=== PATIENT | female | born 1945 ===

== ENCOUNTER 2017-04-28 16:55 | Inpatient (IN) | payer MEDICARE ==
[2017-04-28] MEDS ORDERED: Albuterol-Ipratrop 3 mg / 0.5 (3 ml) UD INH STA ×2 (17:23→18:47)
--- NOTE | 2017-04-28 17:44 | ED PDOC ---
HPI: SOB/CHF/COPD Time Seen by Provider: 04/28/17 17:04 Chief Complaint (Nursing): Cough, Cold, Congestion Additional Complaint(s): Patient is a 71 y/o F with hx of asthma, presenting with "worsening asthma." Patient reports that a non-productive cough and the cold weather and dust have triggered her asthma. Reports using nebulizer at home without relief. Reports subjective fevers. Denies chest pain. Denies current PMD. Past Medical History Vital Signs: Last Vital Signs Temp 100.8 F H 04/28/17 17:01 Pulse 93 H 04/28/17 17:01 Resp 16 04/28/17 17:01 BP 124/69 04/28/17 17:01 Pulse Ox 96 04/28/17 18:51 - Medical History PMH: Arthritis, Asthma, HTN, Hyperlipidemia Denies: Chronic Kidney Disease - Family History Family History: States: No Known Family Hx - Immunization History Hx Tetanus Toxoid Vaccination: No (Not up to date) - Home Medications Home Medications: Ambulatory Orders Medication Instructions Recorded Tramadol HCl [Ultram] 50 mg PO BID PRN #30 tablet 12/15/15 Albuterol Sulfate [Proair Hfa] 2 puff INH Q6 PRN 04/28/17 Montelukast [Singulair] 10 mg PO HS 04/28/17 Valsartan/Hydrochlorothiazide 1 tab PO DAILY 04/28/17 [Diovan Hct 320-25 mg Tablet] - Allergies Allergies/Adverse Reactions: Allergies Allergy/AdvReac Type Severity Reaction Status Date / Time No Known Allergies Allergy Verified 04/28/17 17:00 Curb-65 Severity Score - CURB-65 Severity Score Confusion: No Bun >19mg/dl (>7mmol/L): No Respiratory Rate greater than/equal to 30: No Systolic BP <90 or Diastolic BP less than/equal 60mmHg: No Age >64: Yes Curb-65 Score: 1 Percentage 30-day mortality: 2.7% Review of Systems ROS Statement: Except As Marked, All Systems Reviewed And Found Negative Constitutional: Positive for: Fever Cardiovascular: Negative for: Chest Pain, Palpitations, Paroxysmal Noc. Dyspnea , Edema, Light Headedness Respiratory: Positive for: Cough, Shortness of Breath, SOB with Exertion, Wheezing Gastrointestinal: Negative for: Nausea, Vomiting, Abdominal Pain, Diarrhea, Constipation Genitourinary Female: Negative for: Dysuria Musculoskeletal: Negative for: Neck Pain Skin: Negative for: Rash Neurological: Negative for: Weakness, Numbness, Headache Physical Exam - Reviewed Nursing Documentation Reviewed: Yes Vital Signs Reviewed: Yes - Physical Exam Appears: Positive for: Well, Non-toxic Head Exam: Positive for: ATRAUMATIC, NORMAL INSPECTION, NORMOCEPHALIC Eye Exam: Positive for: Normal appearance Neck: Positive for: Supple Cardiovascular/Chest: Positive for: Regular Rate, Rhythm. Negative for: Edema Respiratory: Positive for: Wheezing Gastrointestinal/Abdominal: Positive for: Soft. Negative for: Tenderness Back: Positive for: Normal Inspection. Negative for: L CVA Tenderness, R CVA Tenderness Extremity: Positive for: Normal ROM Neurologic/Psych: Positive for: Alert - Laboratory Results Result Diagrams: 04/28/17 18:04 04/28/17 18:04 - ECG O2 Sat by Pulse Oximetry: 96 Nebulizer Treatments/Peak Flow - Duonebs Number of Bronchodilator Doses given?: 3 Medical Decision Making Medical Decision Making: Patient is febrile and wheezing. EKG shows NSR at 89bpm with normal intervals and no ST changes --xray --influenza --labs --duonebs, solumedrol 6:42PM Cxray grossly negative for large infiltrate. However, patient is febrile with elevated wbc and co-morbid condition. Will give ceftriaxone and azithromycin. On reevaluation, PF is 225. Patient is persistently wheezing. Spoke to Dr. Rankin, medicine optimization analyst and will admit to medicine for asthma and developing pneumonia. Influenza negative. Disposition - Clinical Impression Clinical Impression: Asthma exacerbation - Disposition Disposition Time: 18:56 Condition: FAIR Forms: [facility] (Hungarian) - Pt Status Changed To: Hospital Disposition Of: Observation
[2017-04-28] MEDS ORDERED: Albuterol-Ipratrop 3 mg / 0.5 (3 ml) UD INH ONE (17:50)
[2017-04-28 18:21] LABS: BASO # 0.1 K/uL (0.0-0.2); BASO % 0.5 % (0.0-2.0); EOS # 0.2 K/uL (0.0-0.7); EOS % 1.5 % (0.0-4.0); HEMATOCRIT 42.4 % (34.0-47.0); LYMPH # 2.8 K/uL (1.0-4.3); LYMPH % 21.4 % (20.0-40.0); MEAN CELL VOLUME 85.1 fl (81.0-99.0); MEAN CORPUSCULAR HEMOGLOBIN 27.6 pg (27.0-31.0); MEAN CORPUSCULAR HGB CONC 32.5 g/dL (33.0-37.0); MEAN PLATELET VOLUME 7.5 fl (7.2-11.7); MONO # 1.2 K/uL (0.0-0.8); MONO % 8.8 % (0.0-10.0); NEUT # 8.9 K/uL (1.8-7.0); NEUT % 67.8 % (50.0-75.0); NRBC % 0.1 % (0.0-0.0); RED CELL DISTRIBUTION WIDTH 14.8 % (11.5-14.5); WHITE BLOOD COUNT 13.1 K/uL (4.8-10.8)
[2017-04-28 18:34] LABS: ALB/GLOB RATIO 1.3 (1.0-2.1); ALKALINE PHOSPHATASE 121 U/L (38-126); ALT/SGPT 31 U/L (9-52); AST/SGOT 21 U/L (14-36); BLOOD UREA NITROGEN 17 mg/dl (7-17); CALCIUM 9.5 mg/dL (8.4-10.2); CARBON DIOXIDE 25 mmol/L (22-30); CHLORIDE 101 mmol/L (98-107); GFR AFRICAN-AMERICAN > 60; GLUCOSE,RANDOM 101 mg/dL (65-105); POTASSIUM 3.4 MMOL/L (3.6-5.0); SODIUM 138 mmol/l (132-148); TOTAL PROTEIN 7.9 G/DL (6.3-8.2)
[2017-04-28] MEDS ORDERED: cefTRIAXone IV 1 gm in Dextros 50 ML IVPB STA (18:43)
[2017-04-28] MEDS ORDERED: Azithromycin 500 MG in Sodium Chloride 0.9% 250 ML IVPB STA (18:43)
[2017-04-28] MEDS ORDERED: cefTRIAXone IV 1 gm in Dextros 50 ML IVPB ONE (19:32)
[2017-04-28] MEDS ORDERED: Albuterol-Ipratrop 3 mg / 0.5 (3 ml) UD ONE (19:33)
[2017-04-28] MEDS ORDERED: Azithromycin 500 MG IV IVPB ONE (19:33)
[2017-04-28] MEDS ORDERED: Sodium Chloride 3% for Inhalation 4 ML VIAL.NEB IH PRN (21:43)
[2017-04-28] MEDS ORDERED: Pneumococcal 23-Valent Vaccine IM ONE (21:51)
[2017-04-28] MEDS ORDERED: Influenza Vaccine 18yr & older 0.5 ML/45 MCG SYR IM ONE (21:51)
[2017-04-29] MEDS ORDERED: methylPREDNISolone 80 MG in Sodium Chloride 0.9% 50 ML IV SCH (01:00)
[2017-04-29] MEDS: Albuterol-Ipratrop 3 mg / 0.5 (3 ml) UD INH SCH ×4 (01:08→19:26)
[2017-04-29 07:31] LABS: HEMATOCRIT 40.2 % (34.0-47.0); MEAN CELL VOLUME 86.6 fl (81.0-99.0); MEAN CORPUSCULAR HEMOGLOBIN 28.3 pg (27.0-31.0); MEAN CORPUSCULAR HGB CONC 32.7 g/dL (33.0-37.0); RED CELL DISTRIBUTION WIDTH 14.4 % (11.5-14.5); WHITE BLOOD COUNT 10.5 K/uL (4.8-10.8)
[2017-04-29 07:45] LABS: BLOOD UREA NITROGEN 25 mg/dl (7-17); CALCIUM 9.1 mg/dL (8.4-10.2); CARBON DIOXIDE 25 mmol/L (22-30); CHLORIDE 102 mmol/L (98-107); CHOLESTEROL 278 mg/dL (0-199); GFR AFRICAN-AMERICAN > 60; GLUCOSE,RANDOM 204 mg/dL (65-105); POTASSIUM 3.7 MMOL/L (3.6-5.0); SODIUM 143 mmol/l (132-148)
--- NOTE | 2017-04-29 09:16 | RAD ---
HISTORY: wheezing, cough COMPARISON: Chest radiographs 05/28/2015. TECHNIQUE: Chest PA and lateral FINDINGS: LUNGS: No active pulmonary disease. PLEURA: No significant pleural effusion identified. No pneumothorax apparent. CARDIOVASCULAR: There is interval cardiomegaly without pulmonary vascular derangement appreciated OSSEOUS STRUCTURES: No significant abnormalities. VISUALIZED UPPER ABDOMEN: Normal. OTHER FINDINGS: None. IMPRESSION: Interval cardiomegaly. No pulmonary vascular derangement or infiltrate appreciated bilaterally.
[2017-04-29] MEDS: Enoxaparin 40 mg Syringe SC SCH (09:28)
[2017-04-29] MEDS: Azithromycin 500 MG in Sodium Chloride 0.9% 250 ML IVPB SCH (09:30)
[2017-04-29 09:47] LABS: ABG ALLEN TEST YES; ARTERIAL BLOOD GAS HCO3 22.7 mmol/L (21-28); ARTERIAL BLOOD GAS O2 CAPACITY 18.2 mL/dL (16-24); ARTERIAL BLOOD GAS O2 CONTENT 17.8 ML/dL (15-23); ARTERIAL BLOOD GAS PH 7.42 (7.35-7.45); ARTERIAL BLOOD GAS PO2 73 mm/Hg (80-100); ARTERIAL BLOOD HGB O2 SAT 94.6 % (95.0-98.0); METHEMOGLOBIN 1.4 % (0.0-3.0)
[2017-04-29] MEDS ORDERED: guaiFENesin DM 200 mg-20 mg/10 ml UD PO PRN (10:37)
[2017-04-29] MEDS: cefTRIAXone IV 1 gm in Dextros 50 ML IVPB SCH (13:19)
[2017-04-29] MEDS: Acetylcysteine 20% Inhal Soln (4ml) INH SCH (19:26)
--- NOTE | 2017-04-29 22:08 | HP ---
HISTORY OF PRESENT ILLNESS: Ms. Epi Christie is a 71-year-old female who is admitted via the Emergency Room because of shortness of breath, exercise intolerance, cough productive of greenish sputum for several days prior to presentation associated with chest discomfort on coughing. She was seen in the Emergency Room and admitted for acute asthma. PAST MEDICAL HISTORY: Arthritis, asthma, hypertension, hyperlipidemia. FAMILY HISTORY: Non-revealing. SOCIAL HISTORY: She does not smoke or drink. REVIEW OF SYSTEMS: Essentially unremarkable except for intermittent asthma attacks. PHYSICAL EXAMINATION: GENERAL: The patient is alert, oriented, appears to be feeling some distress due to cough and pleuritic chest pain with shortness of breath. VITAL SIGNS: Blood pressure 129/73, pulse of 76, respiratory rate is 18, she is afebrile, O2 sat 95% on room air. SKIN: Shows fair turgor. HEENT: Pupils equal and reactive to light and accommodation. Mouth shows fair hygiene with mucous engorgement of pharynx. NECK: JVP flat. BREASTS: Normal. LUNGS: Shows poor aeration bilaterally with audible wheezing and rales. HEART: S1, S2. ABDOMEN: Soft, nontender. No organomegaly. EXTREMITIES: Shows no edema or cyanosis. CENTRAL NERVOUS SYSTEM: Grossly intact. LABORATORY DATA: Chest x-ray shows no acute cardiopulmonary pathology except for mild cardiomegaly. The ABGs done on room air shows a pH of 7.42, pCO2 of 32, pO2 of 73, O2 sat 97.9. Sodium 143, potassium 3.7, BUN of 25, creatinine 0.8, serum glucose 204, cholesterol 278, LDL 183. WBC 13.1 down to 10.5, hemoglobin 13.1, platelet count 223,000. IMPRESSION: Acute exacerbation of asthma probably secondary to upper respiratory tract infection, hypertension fairly controlled, and hyperlipidemia. PLAN: Intravenous steroids, aerosolized bronchodilators, antitussive, analgesics for pain. We will give bronchodilators to improve respiratory status. Oxygen therapy already given. IV antibiotics for coverage of empiric upper respiratory tract infection. We will continue therapy as ordered. José Miguel Rankin MD
[2017-04-30] MEDS: Albuterol-Ipratrop 3 mg / 0.5 (3 ml) UD INH SCH ×4 (01:36→20:14)
[2017-04-30] MEDS: Acetylcysteine 20% Inhal Soln (4ml) INH SCH ×2 (07:50→20:14)
[2017-04-30] MEDS: Enoxaparin 40 mg Syringe SC SCH (08:36)
[2017-04-30] MEDS: cefTRIAXone IV 1 gm in Dextros 50 ML IVPB SCH (08:36)
[2017-04-30] MEDS: Azithromycin 500 MG in Sodium Chloride 0.9% 250 ML IVPB SCH (08:37)
--- NOTE | 2017-04-30 08:48 | CP.PCM.PN ---
Subjective - Date & Time of Evaluation Date of Evaluation: 04/30/17 Time of Evaluation: 08:48 - Subjective Subjective: LESS SOB STILL COUGHING UP GREEN SPUTUM Objective - Vital Signs/Intake and Output Vital Signs (last 24 hours): Temp Pulse Resp BP Pulse Ox 97.7 F 75 18 136/76 98 04/30/17 08:07 04/30/17 08:07 04/30/17 08:07 04/30/17 08:07 04/30/17 08:07 - Medications Medications: Current Medications Acetaminophen (Tylenol 325mg Tab) 650 mg PO Q4 PRN PRN Reason: Fever 101 F or over Acetaminophen (Tylenol 325mg Tab) 650 mg PO Q4 PRN PRN Reason: Pain, Mild (1-3) Last Admin: 04/29/17 15:41 Dose: 650 mg Acetylcysteine (Acetylcysteine 20%) 2 ml INH RBID [facility] Last Admin: 04/30/17 07:50 Dose: 2 ml Albuterol/Ipratropium (Duoneb 3 Mg/0.5 Mg (3 Ml) Ud) 3 ml INH RQ6 [facility] Last Admin: 04/30/17 07:50 Dose: 3 ml Enoxaparin Sodium (Lovenox) 40 mg SC DAILY [facility] PRN Reason: Protocol Last Admin: 04/30/17 08:36 Dose: 40 mg Guaifenesin/Dextromethorphan (Robitussin Dm) 10 ml PO Q4 PRN PRN Reason: Cough Hydrochlorothiazide (Hydrodiuril) 25 mg PO DAILY [facility] Last Admin: 04/30/17 08:36 Dose: 25 mg Azithromycin 500 mg/ Sodium (Chloride) 250 mls @ 250 mls/hr IVPB DAILY [facility] PRN Reason: Protocol Last Admin: 04/30/17 08:37 Dose: 250 mls/hr Ceftriaxone Sodium (Rocephin Iv 1 Gm Duplex) 50 mls @ 50 mls/hr IVPB DAILY [facility] PRN Reason: Protocol Last Admin: 04/30/17 08:36 Dose: 50 mls/hr Methylprednisolone (Solu-Medrol) 80 mg IV Q8 [facility] Last Admin: 04/30/17 08:38 Dose: 80 mg Montelukast Sodium (Singulair) 10 mg PO HS [facility] Last Admin: 04/29/17 21:32 Dose: 10 mg Tramadol HCl (Ultram) 50 mg PO BID PRN PRN Reason: Pain, moderate (4-7) Last Admin: 04/29/17 21:32 Dose: 50 mg Valsartan (Diovan) 320 mg PO DAILY [facility] Last Admin: 04/30/17 08:35 Dose: 320 mg - Labs Labs: 04/29/17 06:10 04/29/17 06:10 - Constitutional Appears: No Acute Distress - Head Exam Head Exam: ATRAUMATIC, NORMAL INSPECTION, NORMOCEPHALIC - Eye Exam Eye Exam: EOMI, Normal appearance, PERRL Pupil Exam: NORMAL ACCOMODATION, PERRL - ENT Exam ENT Exam: Mucous Membranes Moist, Normal Exam - Neck Exam Neck Exam: Full ROM, Normal Inspection. absent: Lymphadenopathy - Respiratory Exam Respiratory Exam: Prolonged Expiratory Phase, Wheezes, NORMAL BREATHING PATTERN - Cardiovascular Exam Cardiovascular Exam: REGULAR RHYTHM, +S1, +S2. absent: Murmur - GI/Abdominal Exam GI & Abdominal Exam: Soft, Normal Bowel Sounds. absent: Tenderness - Rectal Exam Rectal Exam: NORMAL INSPECTION - Extremities Exam Extremities Exam: Full ROM, Normal Capillary Refill, Normal Inspection. absent : Joint Swelling, Pedal Edema - Back Exam Back Exam: NORMAL INSPECTION - Neurological Exam Neurological Exam: Alert, Awake, CN II-XII Intact, Normal Gait, Oriented x3 - Psychiatric Exam Psychiatric exam: Normal Affect, Normal Mood - Skin Skin Exam: Dry, Intact, Normal Color, Warm Assessment and Plan - Assessment and Plan (Free Text) Assessment: ACUTE PERSISTENT ASTHMA EXACERBATION URI Plan: TAPER STEROIDS TRANSFER TO REGULAR FLOOR
[2017-04-30] MEDS: MethylPREDNISolone 40 mg Vial IV SCH ×2 (09:00→22:58)
--- NOTE | 2017-04-30 12:33 | CARD ---
APPROVED REPORT EKG Measurement Heart [id number] <Conclusion> Normal sinus rhythm Normal ECG
[2017-05-01] MEDS: Albuterol-Ipratrop 3 mg / 0.5 (3 ml) UD INH SCH ×3 (01:00→13:42)
[2017-05-01] MEDS: Acetylcysteine 20% Inhal Soln (4ml) INH SCH (07:16)
[2017-05-01 07:32] VITALS: BP 169/87; PULSE 75; RESP 18; TEMP 97.8; O2SAT 93
[2017-05-01] MEDS: cefTRIAXone IV 1 gm in Dextros 50 ML IVPB SCH (08:29)
[2017-05-01] MEDS: Enoxaparin 40 mg Syringe SC SCH (08:29)
[2017-05-01] MEDS: MethylPREDNISolone 40 mg Vial IV SCH (08:30)
[2017-05-01] MEDS: Azithromycin 500 MG in Sodium Chloride 0.9% 250 ML IVPB SCH (08:31)
--- NOTE | 2017-05-01 09:56 | CP.PCM.DIS ---
Provider - Provider Date of Admission: 04/29/17 21:28 Attending physician: José Miguel Rankin MD Time Spent in preparation of Discharge (in minutes): 35 Diagnosis - Discharge Diagnosis (1) Asthma exacerbation Status: Acute (2) Asthma exacerbation attacks Status: Acute (3) Bronchitis Status: Acute (4) Hypertension Status: Acute (5) Hyperlipidemia Status: Acute Hospital Course - Lab Results Lab Results: Micro Results 04/28/17 18:00 Blood Blood Culture - Preliminary NO GROWTH AFTER 48 HOURS 04/30/17 08:13 Sputum Gram Stain - Final Most Recent Lab Values WBC 10.5 K/uL (4.8-10.8) 04/29/17 06:10 RBC 4.65 Mil/uL (3.80-5.20) 04/29/17 06:10 Hgb 13.1 g/dL (12.0-16.0) 04/29/17 06:10 Hct 40.2 % (34.0-47.0) 04/29/17 06:10 MCV 86.6 fl (81.0-99.0) 04/29/17 06:10 MCH 28.3 pg (27.0-31.0) 04/29/17 06:10 MCHC 32.7 g/dL (33.0-37.0) L 04/29/17 06:10 RDW 14.4 % (11.5-14.5) 04/29/17 06:10 Plt Count 223 K/uL (130-400) 04/29/17 06:10 MPV 7.5 fl (7.2-11.7) 04/28/17 18:04 Neut % (Auto) 67.8 % (50.0-75.0) 04/28/17 18:04 Lymph % (Auto) 21.4 % (20.0-40.0) 04/28/17 18:04 [place] % (Auto) 8.8 % (0.0-10.0) 04/28/17 18:04 Eos % (Auto) 1.5 % (0.0-4.0) 04/28/17 18:04 Baso % (Auto) 0.5 % (0.0-2.0) 04/28/17 18:04 Neut # 8.9 K/uL (1.8-7.0) H 04/28/17 18:04 Lymph # 2.8 K/uL (1.0-4.3) 04/28/17 18:04 [place] # 1.2 K/uL (0.0-0.8) H 04/28/17 18:04 Eos # 0.2 K/uL (0.0-0.7) 04/28/17 18:04 Baso # 0.1 K/uL (0.0-0.2) 04/28/17 18:04 pCO2 32 mm/Hg (35-45) L 04/29/17 08:36 pO2 73 mm/Hg (80-100) L 04/29/17 08:36 HCO3 22.7 mmol/L (21-28) 04/29/17 08:36 ABG pH 7.42 (7.35-7.45) 04/29/17 08:36 ABG Total CO2 21.8 mmol/L (22-28) L 04/29/17 08:36 ABG O2 Saturation 97.9 % (95-98) 04/29/17 08:36 ABG O2 Content 17.8 ML/dL (15-23) 04/29/17 08:36 ABG Base Excess -2.8 mmol/L (-2.0-3.0) L 04/29/17 08:36 ABG Hemoglobin 13.4 g/dL (11.7-17.4) 04/29/17 08:36 ABG Carboxyhemoglobin 2.0 % (0.5-1.5) H 04/29/17 08:36 POC ABG HHb (Measured) 2.0 % (0.0-5.0) 04/29/17 08:36 ABG Methemoglobin 1.4 % (0.0-3.0) 04/29/17 08:36 ABG O2 Capacity 18.2 mL/dL (16-24) 04/29/17 08:36 Kristopher Test Yes 04/29/17 08:36 A-a O2 Difference 37.0 mm/Hg 04/29/17 08:36 Hgb O2 Saturation 94.6 % (95.0-98.0) L 04/29/17 08:36 FiO2 21.0 % 04/29/17 08:36 Sodium 143 mmol/l (132-148) 04/29/17 06:10 Potassium 3.7 MMOL/L (3.6-5.0) 04/29/17 06:10 Chloride 102 mmol/L (98-107) 04/29/17 06:10 Carbon Dioxide 25 mmol/L (22-30) 04/29/17 06:10 Anion Gap 20 (10-20) 04/29/17 06:10 BUN 25 mg/dl (7-17) H 04/29/17 06:10 Creatinine 0.8 mg/dl (0.7-1.2) 04/29/17 06:10 Est GFR ( Amer) > 60 04/29/17 06:10 Est GFR (Non-Af Amer) > 60 04/29/17 06:10 Random Glucose 204 mg/dL (65-105) H 04/29/17 06:10 Calcium 9.1 mg/dL (8.4-10.2) 04/29/17 06:10 Total Bilirubin 1.0 mg/dl (0.2-1.3) 04/28/17 18:04 AST 21 U/L (14-36) 04/28/17 18:04 ALT 31 U/L (9-52) 04/28/17 18:04 Alkaline Phosphatase 121 U/L (38-126) 04/28/17 18:04 Troponin I < 0.0120 ng/mL (0.00-0.120) 04/28/17 18:04 NT-Pro-B Natriuret Pep 280 pg/ml (0-900) 04/28/17 18:04 Total Protein 7.9 G/DL (6.3-8.2) 04/28/17 18:04 Albumin 4.5 g/dL (3.5-5.0) 04/28/17 18:04 Globulin 3.4 gm/dL (2.2-3.9) 04/28/17 18:04 Albumin/Globulin Ratio 1.3 (1.0-2.1) 04/28/17 18:04 Triglycerides 107 mg/DL (0-149) D 04/29/17 06:10 Cholesterol 278 mg/dL (0-199) H 04/29/17 06:10 LDL Cholesterol Direct 183 mg/dL (0-129) H 04/29/17 06:10 HDL Cholesterol 71 MG/DL (30-70) H 04/29/17 06:10 Influenza Typ A,B (EIA) Negative for flu a/b (NEGATIVE) 04/28/17 18:02 - Hospital Course Hospital Course: CLINICALLY IMPROVED Discharge Exam - Head Exam Head Exam: ATRAUMATIC, NORMAL INSPECTION, NORMOCEPHALIC - Eye Exam Eye Exam: EOMI, Normal appearance, PERRL Pupil Exam: NORMAL ACCOMODATION, PERRL - GI/Abdominal Exam GI & Abdominal Exam: Normal Bowel Sounds - Rectal Exam Rectal Exam: NORMAL INSPECTION - Neurological Exam Neurological exam: Alert, CN II-XII Intact, Normal Gait, Oriented x3, Reflexes Normal - Psychiatric Exam Psychiatric exam: Normal Affect, Normal Mood - Skin Skin Exam: Dry, Intact, Normal Color, Warm Discharge Plan - Follow Up Plan Condition: FAIR Disposition: HOME/ ROUTINE Patient education suggested?: Yes Additional Instructions: DISCHARGE TODAY FOLLOW UP WITH PMD
== END 2017-05-01 14:15 | disposition home or self-care (01) | DRG 203 ==
LOC: H.ER 16:55 → H.ERHOLD 18:53 → H.TEL 21:32 → OBSVTOIN 04-29 21:28 → H.MEDSURG1 04-30 19:08
PROVIDERS: ADMIT Internal Medicine Pulmonary Disease; ATTEND Internal Medicine Pulmonary Disease
PROC: 3E0F7GC Introduction of Other Therapeutic Substance into Respiratory Tract, Via Natural or Artificial Opening (ICD-10-PCS; principal; 2017-04-29)
DX: J45.31 Mild persistent asthma with (acute) exacerbation (principal); I10 Essential (primary) hypertension; E78.5 Hyperlipidemia, unspecified; M19.90 Unspecified osteoarthritis, unspecified site

== ENCOUNTER 2017-05-16 16:58 | Inpatient (IN) | payer MEDICARE ==
[2017-05-16] MEDS ORDERED: levoFLOXacin 750 mg in D5W 150 ML BAG IVPB STA (17:50)
[2017-05-16] MEDS ORDERED: Albuterol-Ipratrop 3 mg / 0.5 (3 ml) UD INH STA (17:50)
[2017-05-16] MEDS ORDERED: levoFLOXacin 750 mg in D5W 750 MG/150 ML BAG IVPB ONE ×2 (18:00→18:01)
[2017-05-16 18:01] LABS: VENOUS BLOOD GAS BASE EXCESS 4.2 mmol/L (0.0-2.0); VENOUS BLOOD GAS PCO2 40 mmHg (40-60); VENOUS BLOOD GAS PO2 27 mm/Hg (30-55); VENOUS BLOOD PH 7.46 (7.32-7.43)
[2017-05-16] MEDS ORDERED: Albuterol-Ipratrop 3 mg / 0.5 (3 ml) UD ONE (18:01)
--- NOTE | 2017-05-16 18:03 | ED PDOC ---
HPI: CCC, URI, Sore Throat Time Seen by Provider: 05/16/17 17:35 Chief Complaint (Nursing): Flu-like Symptoms Chief Complaint (Provider): Cough History Per: Patient History/Exam Limitations: no limitations Onset/Duration Of Symptoms: Days (x 2) Current Symptoms Are (Timing): Still Present Additional Complaint(s): Rupal Christie is a 71 year old female who presents complaining of shortness of breath associated with cough with green sputum production for 2 days. Reports she had a fever of 102 today, but did not take any medications. Also complaining of dizziness and headache. Denies chest pain. PMD: Dr. Eric Zacarias, Past Medical History Reviewed: Historical Data, Nursing Documentation, Vital Signs Vital Signs: Last Vital Signs Temp 97.7 F 05/20/17 08:24 Pulse 61 05/20/17 08:24 Resp 18 05/20/17 08:24 BP 157/81 H 05/20/17 08:24 Pulse Ox 97 05/20/17 08:24 - Medical History PMH: Arthritis, Asthma, HTN, Hypercholesterolemia, Hyperlipidemia Denies: Chronic Kidney Disease - Surgical History Other surgeries: Hysterectomy - Family History Family History: States: Unknown Family Hx - Social History Current smoker - smoking cessation education provided: No Alcohol: None Drugs: Denies - Immunization History Hx Tetanus Toxoid Vaccination: No (Not up to date) - Home Medications Home Medications: Ambulatory Orders Medication Instructions Recorded Albuterol Sulfate [Proair Hfa] 2 puff INH Q6 PRN 04/28/17 Montelukast [Singulair] 10 mg PO HS 04/28/17 Valsartan/Hydrochlorothiazide 1 tab PO DAILY 04/28/17 [Diovan Hct 320-25 mg Tablet] Albuterol 0.083% [Albuterol 0.083% 3 ml IH Q6H PRN 05/16/17 Inhal Kimberlee (2.5 mg/3 ml) UD] Ascorbic Acid [Vitamin C 500 mg 1 tab PO DAILY 05/16/17 Tab] Cholecalciferol [Vitamin D 1000 IU] 1 tab PO DAILY 05/16/17 Multivitamin/Iron/Folic Acid 1 tab PO DAILY 05/16/17 [Centrum Complete Multivit Tab] Promethazine [Phenergan Syrup] 5 ml PO Q6H PRN 05/16/17 - Allergies Allergies/Adverse Reactions: Allergies Allergy/AdvReac Type Severity Reaction Status Date / Time No Known Allergies Allergy Verified 04/28/17 17:00 Physical Exam - Reviewed Nursing Documentation Reviewed: Yes Vital Signs Reviewed: Yes - Physical Exam Appears: Positive for: Non-toxic, No Acute Distress Head Exam: Positive for: ATRAUMATIC, NORMAL INSPECTION, NORMOCEPHALIC Skin: Positive for: Normal Color, Warm, Dry Eye Exam: Positive for: EOMI, Normal appearance, PERRL Neck: Positive for: Normal, Supple Cardiovascular/Chest: Positive for: Regular Rate, Rhythm. Negative for: Murmur Respiratory: Positive for: Normal Breath Sounds, Other (unable to take deep inspiration, bronchospasm). Negative for: Crackles, Wheezing Gastrointestinal/Abdominal: Positive for: Normal Exam, Soft. Negative for: Tenderness Extremity: Positive for: Normal ROM. Negative for: Deformity Neurologic/Psych: Positive for: Alert, Oriented, Other (Speaking full sentences) - Laboratory Results Result Diagrams: 05/20/17 08:35 05/20/17 06:30 - ECG O2 Sat by Pulse Oximetry: 99 (RA) Pulse Ox Interpretation: Normal - Radiology X-Ray: Interpreted by Me, Viewed By Az X-Ray Interpretation: Infiltrates (Right lower) Medical Decision Making Medical Decision Making: Time: 17:49 Initial Impression: Asthma exacerbation, bronchitis, pneumonia Initial Plan: * EKG * VBG * CMP * CBC w/ differential * PTT * Prothrombin time * Blood culture * Urine dipstick * Urinalysis * Influenza A B * Solu-medrol 125 mg IV * Tylenol 650 mg PO * Levofloxacin 750 mg in 150 ml IV * Duoneb 3 ml INH * Peak Flow pre/post treatment * Reevaluation Repeat temp taken orally: 102.2. CXR, read by me, shows right lower infiltrate. Labs reviewed, Lactate is 2.2. Time: 19:17 Patient will be admitted inpatient to telemetry for pneumonia and sepsis, under the service of Dr. Mauro. Started pt on IV fluids. Scribe Attestation: Documented by Anitra Brady, acting as a scribe for Natasha aMrtinez MD Provider Scribe Attestation: All medical record entries made by the Scribe were at my direction and personally dictated by me. I have reviewed the chart and agree that the record accurately reflects my personal performance of the history, physical exam, medical decision making, and the department course for this patient. I have also personally directed, reviewed, and agree with the discharge instructions and disposition. Disposition - Clinical Impression Clinical Impression: Pneumonia, Sepsis - Patient ED Disposition Is Patient to be Admitted: Yes Counseled Patient/Family Regarding: Studies Performed - Disposition Disposition Time: 19:17 Condition: GUARDED - Pt Status Changed To: Hospital Disposition Of: Inpatient - Admit Certification Admit to Inpatient:: After my assessment, the patient will require hospitalization for at least two midnights. This is because of the severity of symptoms shown, intensity of services needed, and/or the medical risk in this patient being treated as an outpatient. - POA Present On Arrival: None
[2017-05-16 18:04] LABS: BASO # 0.1 K/uL (0.0-0.2); BASO % 0.4 % (0.0-2.0); EOS # 0.1 K/uL (0.0-0.7); EOS % 0.6 % (0.0-4.0); HEMOGLOBIN 13.9 g/dL (12.0-16.0); LYMPH # 1.4 K/uL (1.0-4.3); LYMPH % 7.9 % (20.0-40.0); MEAN CELL VOLUME 85.1 fl (81.0-99.0); MEAN CORPUSCULAR HEMOGLOBIN 28.1 pg (27.0-31.0); MEAN CORPUSCULAR HGB CONC 33.1 g/dL (33.0-37.0); MEAN PLATELET VOLUME 7.2 fl (7.2-11.7); MONO # 0.9 K/uL (0.0-0.8); MONO % 5.3 % (0.0-10.0); NEUT # 14.7 K/uL (1.8-7.0); NEUT % 85.8 % (50.0-75.0); NRBC % 0.1 % (0.0-0.0); PLATELET COUNT 199 K/uL (130-400); RBC 4.94 Mil/uL (3.80-5.20); RED CELL DISTRIBUTION WIDTH 15.1 % (11.5-14.5); WHITE BLOOD COUNT 17.1 K/uL (4.8-10.8)
[2017-05-16 18:15] LABS: ALB/GLOB RATIO 1.3 (1.0-2.1); ALBUMIN 4.4 g/dL (3.5-5.0); ALT/SGPT 36 U/L (9-52); AST/SGOT 26 U/L (14-36); BLOOD UREA NITROGEN 15 mg/dl (7-17); CALCIUM 9.3 mg/dL (8.4-10.2); GFR AFRICAN-AMERICAN > 60; GFR NON-AFRICAN AMERICAN > 60
[2017-05-16 18:21] LABS: PARTIAL THROMBOPLASTIN TIME 34.1 Seconds (25.6-37.1); PROTHROMBIN TIME 11.6 Seconds (9.8-13.1)
[2017-05-16] MEDS ORDERED: Sodium Chloride 0.9% 1,000 ML IV STA (19:17)
[2017-05-16 20:00] LABS: BANDS 2 % (0-2); EOSINOPHIL 1 % (0-7); HYPOCHROMIC SLIGHT; LYMPHOCYTE 8 % (20-50); MONOCYTE 7 % (0-10); NEUTROPHIL 82 % (42-75); PLATELET ESTIMATE NORMAL (NORMAL); TOTAL CELLS COUNTED 100
[2017-05-17] MEDS: MethylPREDNISolone 40 mg Vial IVP SCH ×3 (00:37→17:33)
[2017-05-17] MEDS: Albuterol-Ipratrop 3 mg / 0.5 (3 ml) UD INH SCH ×6 (04:58→19:12)
[2017-05-17 05:01] LABS: ABG ALLEN TEST YES; ARTERIAL BLOOD GAS HCO3 25.9 mmol/L (21-28); ARTERIAL BLOOD GAS HEMOGLOBIN 13.6 g/dL (11.7-17.4); ARTERIAL BLOOD GAS O2 CAPACITY 18.4 mL/dL (16-24); ARTERIAL BLOOD GAS O2 CONTENT 18.1 ML/dL (15-23); ARTERIAL BLOOD GAS O2 SAT 98.2 % (95-98); ARTERIAL BLOOD GAS PCO2 36 mm/Hg (35-45); ARTERIAL BLOOD GAS PH 7.45 (7.35-7.45); ARTERIAL BLOOD GAS PO2 75 mm/Hg (80-100); ARTERIAL BLOOD GAS TCO2 26.1 mmol/L (22-28)
[2017-05-17 05:30] LABS: HEMOGLOBIN 13.2 g/dL (12.0-16.0); MEAN CELL VOLUME 86.6 fl (81.0-99.0); MEAN CORPUSCULAR HEMOGLOBIN 28.1 pg (27.0-31.0); MEAN CORPUSCULAR HGB CONC 32.4 g/dL (33.0-37.0); RBC 4.7 Mil/uL (3.80-5.20); RED CELL DISTRIBUTION WIDTH 14.8 % (11.5-14.5)
[2017-05-17 05:51] LABS: T4 7.96 ug/dl (5.5-11.0)
[2017-05-17 05:52] LABS: LDL CHOLESTEROL 193 mg/dL (0-129)
[2017-05-17 06:18] LABS: ALB/GLOB RATIO 1.3 (1.0-2.1); ALT/SGPT 34 U/L (9-52); AST/SGOT 20 U/L (14-36); BLOOD UREA NITROGEN 19 mg/dl (7-17); CALCIUM 8.5 mg/dL (8.4-10.2); GFR AFRICAN-AMERICAN > 60; GFR NON-AFRICAN AMERICAN > 60; HDL CHOLESTEROL 71 MG/DL (30-70)
[2017-05-17] MEDS: Pantoprazole 40 mg EC Tab PO SCH (08:46)
[2017-05-17] MEDS: levoFLOXacin 750 mg in D5W 750 MG/150 ML BAG IVPB SCH (08:48)
[2017-05-17] MEDS ORDERED: Patient's Own Med (Valsartan/Hydrochlorothiazide [Diovan Hct 320-25 Mg Tablet] 1 TAB) PO SCH (09:00)
--- NOTE | 2017-05-17 09:03 | RAD ---
HISTORY: Asthma COMPARISON: No prior. FINDINGS: LUNGS: No infiltrate. Opacity at medial right lung base is felt to be artifactual due to oblique positioning of the patient. GoNo active pulmonary disease. PLEURA: No pleural effusion. Minimal nonspecific elevation of the right hemidiaphragm. No pneumothorax. CARDIOVASCULAR: Normal. OSSEOUS STRUCTURES: No significant abnormalities. VISUALIZED UPPER ABDOMEN: Normal. OTHER FINDINGS: None. IMPRESSION: No active disease.
--- NOTE | 2017-05-17 10:35 | CARD ---
APPROVED REPORT EKG Measurement Heart [id number] <Conclusion> Sinus rhythm with premature atrial complexes Otherwise normal ECG
--- NOTE | 2017-05-17 15:16 | CP.PCM.HP ---
History of Present Illness - History of Present Illness History of Present Illness: CC: SOB. 71 y/o F, came to ER [facility], [place] to be evaluated for worsening asthma, onset 2 days [employer] with no relief. Pt c/o of gradually increased and persistent moderate SOB associated to wheezing, intermittent cough with yellowish sputum, denied bloody cough. Worsening symptoms: Chills and high fever while at home ( In ER 102.2), Nasal congestion, headache, dizziness. Aggravated factor: Exercise/ movements. Pt denied: Abdominal pain, n/v/d, urinary symptoms, CP, syncope, sick contact, recent travel. CXR: No active disease. EKG: Sinus rhythm with PAC. Present on Admission - Present on Admission Any Indicators Present on Admission: No Review of Systems - Constitutional Constitutional: Chills, Fever, Headache - EENT Eyes: Other (Glaucoma) Ears: Other (negative) Nose/Mouth/Throat: Other (negative) - Cardiovascular Cardiovascular: Other (negative) - Respiratory Respiratory: Cough, Dyspnea, Wheezing, Chest Congestion, Change in Mucous Color - Gastrointestinal Gastrointestinal: Other (negative) - Genitourinary Genitourinary: Other (negative) - Musculoskeletal Musculoskeletal: Arthralgias - Integumentary Integumentary: Other (negative) - Neurological Neurological: Weakness (LE) - Psychiatric Psychiatric: Other (negative) - Endocrine Endocrine: Other (negative) - Hematologic/Lymphatic Hematologic: Other (negative) Past Patient History - Past Medical History & Family History Past Medical History?: Yes Pertinent Family History: Unknown - Past Social History Smoking Status: Never Smoked Alcohol: None Drugs: Denies Home Situation {Lives}: With Family - CARDIAC Hx Cardiac Disorders: Yes Hx Hypercholesterolemia: Yes Hx Hypertension: Yes - PULMONARY Hx Respiratory Disorders: Yes Hx Asthma: Yes Hx Chronic Obstructive Pulmonary Disease (COPD): Yes - NEUROLOGICAL Hx Neurological Disorder: No - HEENT Hx HEENT Problems: Yes Hx Glaucoma: Yes (As per patient) - RENAL Hx Chronic Kidney Disease: No - ENDOCRINE/METABOLIC Hx Endocrine Disorders: No - HEMATOLOGICAL/ONCOLOGICAL Hx Blood Disorders: No - INTEGUMENTARY Hx Dermatological Problems: No - MUSCULOSKELETAL/RHEUMATOLOGICAL Hx Musculoskeletal Disorders: Yes Hx Arthritis: Yes Hx Falls: No - GASTROINTESTINAL Hx Gastrointestinal Disorders: No - GENITOURINARY/GYNECOLOGICAL Hx Genitourinary Disorders: No - PSYCHIATRIC Hx Psychophysiologic Disorder: No Hx Substance Use: No - SURGICAL HISTORY Hx Surgeries: Yes Hx Eye Surgery: Yes (As per patient; Glaucoma sx) Hx Hysterectomy: Yes - ANESTHESIA Hx Anesthesia: Yes Hx Anesthesia Reactions: No Meds Allergies/Adverse Reactions: Allergies Allergy/AdvReac Type Severity Reaction Status Date / Time No Known Allergies Allergy Verified 04/28/17 17:00 Physical Exam - Constitutional Appears: No Acute Distress - Head Exam Head Exam: NORMAL INSPECTION - Eye Exam Eye Exam: PERRL - ENT Exam ENT Exam: Normal Exam - Neck Exam Neck exam: Positive for: Normal Inspection - Respiratory Exam Respiratory Exam: Decreased Breath Sounds (at bases) - Cardiovascular Exam Cardiovascular Exam: REGULAR RHYTHM - GI/Abdominal Exam GI & Abdominal Exam: Normal Bowel Sounds, Soft - Extremities Exam Extremities exam: Positive for: normal inspection, tenderness (mild R L knees) - Back Exam Back exam: NORMAL INSPECTION - Neurological Exam Neurological exam: Alert, Oriented x3 Additional comments: no motor/sensory deficit - Psychiatric Exam Psychiatric exam: Normal Mood - Skin Skin Exam: Warm Results - Vital Signs Recent Vital Signs: Last Vital Signs Temp 97.5 F L 05/17/17 12:32 Pulse 108 H 05/17/17 12:32 Resp 18 05/17/17 12:32 BP 129/68 05/17/17 12:32 Pulse Ox 97 05/17/17 12:32 reviewed Abigail - Labs Result Diagrams: 05/20/17 08:35 05/20/17 06:30 Labs: Laboratory Results - last 24 hr 05/16/17 05/16/17 05/16/17 05:45 17:45 17:45 WBC 17.1 H D RBC 4.94 Hgb 13.9 Hct 42.0 MCV 85.1 MCH 28.1 MCHC 33.1 RDW 15.1 H Plt Count 199 MPV 7.2 Neut % (Auto) 85.8 H Lymph % (Auto) 7.9 L [place] % (Auto) 5.3 Eos % (Auto) 0.6 Baso % (Auto) 0.4 Neut # 14.7 H Lymph # 1.4 [place] # 0.9 H Eos # 0.1 Baso # 0.1 Neutrophils % (Manual) 82 H Band Neutrophils % 2 Lymphocytes % (Manual) 8 L Monocytes % (Manual) 7 Eosinophils % (Manual) 1 Platelet Estimate Normal Hypochromasia (manual) Slight PT 11.6 INR 1.0 APTT 34.1 pCO2 pO2 HCO3 ABG pH ABG Total CO2 ABG O2 Saturation ABG O2 Content ABG Base Excess ABG Hemoglobin ABG Carboxyhemoglobin POC ABG HHb (Measured) ABG Methemoglobin ABG O2 Capacity Kristopher Test VBG pH VBG pCO2 VBG HCO3 VBG Total CO2 VBG O2 Sat (Calc) VBG Base Excess VBG Potassium A-a O2 Difference Hgb O2 Saturation Glucose Lactate Vent Mode FiO2 Blood Gas Comments Crit Value Called To Crit Value Called By Crit Value Read Back Blood Gas Notified Time Sodium 137 Potassium 3.7 Chloride 98 Carbon Dioxide 26 Anion Gap 17 BUN 15 Creatinine 0.8 Est GFR ( Amer) > 60 Est GFR (Non-Af Amer) > 60 Random Glucose 119 H Calcium 9.3 Total Bilirubin 1.7 H AST 26 ALT 36 Alkaline Phosphatase 133 H Total Protein 7.8 Albumin 4.4 Globulin 3.3 Albumin/Globulin Ratio 1.3 Triglycerides Cholesterol LDL Cholesterol Direct HDL Cholesterol Thyroxine (T4) TSH 3rd Generation Venous Blood Potassium Influenza Typ A,B (EIA) 05/16/17 05/16/17 05/17/17 17:54 17:57 04:30 WBC 14.0 H RBC 4.70 Hgb 13.2 Hct 40.7 MCV 86.6 MCH 28.1 MCHC 32.4 L RDW 14.8 H Plt Count 185 MPV Neut % (Auto) Lymph % (Auto) [place] % (Auto) Eos % (Auto) Baso % (Auto) Neut # Lymph # [place] # Eos # Baso # Neutrophils % (Manual) Band Neutrophils % Lymphocytes % (Manual) Monocytes % (Manual) Eosinophils % (Manual) Platelet Estimate Hypochromasia (manual) PT INR APTT pCO2 pO2 27 L HCO3 ABG pH ABG Total CO2 ABG O2 Saturation ABG O2 Content ABG Base Excess ABG Hemoglobin ABG Carboxyhemoglobin POC ABG HHb (Measured) ABG Methemoglobin ABG O2 Capacity Kristopher Test VBG pH 7.46 H VBG pCO2 40 VBG HCO3 27.1 VBG Total CO2 29.6 H VBG O2 Sat (Calc) 68.3 H VBG Base Excess 4.2 H VBG Potassium 3.4 L A-a O2 Difference Hgb O2 Saturation Glucose 122 H Lactate 2.2 H Vent Mode FiO2 21.0 Blood Gas Comments Lactate 2.2 Crit Value Called To iram Lynn Crit Value Called By 203 Crit Value Read Back Y Blood Gas Notified Time 1801 Sodium 131.0 L Potassium Chloride 101.0 Carbon Dioxide Anion Gap BUN Creatinine Est GFR ( Amer) Est GFR (Non-Af Amer) Random Glucose Calcium Total Bilirubin AST ALT Alkaline Phosphatase Total Protein Albumin Globulin Albumin/Globulin Ratio Triglycerides Cholesterol LDL Cholesterol Direct HDL Cholesterol Thyroxine (T4) TSH 3rd Generation Venous Blood Potassium 3.4 L Influenza Typ A,B (EIA) Negative for flu a/b 05/17/17 05/17/17 04:30 04:54 WBC RBC Hgb Hct MCV MCH MCHC RDW Plt Count MPV Neut % (Auto) Lymph % (Auto) [place] % (Auto) Eos % (Auto) Baso % (Auto) Neut # Lymph # [place] # Eos # Baso # Neutrophils % (Manual) Band Neutrophils % Lymphocytes % (Manual) Monocytes % (Manual) Eosinophils % (Manual) Platelet Estimate Hypochromasia (manual) PT INR APTT pCO2 36 pO2 75 L HCO3 25.9 ABG pH 7.45 ABG Total CO2 26.1 ABG O2 Saturation 98.2 H ABG O2 Content 18.1 ABG Base Excess 1.3 ABG Hemoglobin 13.6 ABG Carboxyhemoglobin 2.4 H POC ABG HHb (Measured) 1.7 ABG Methemoglobin 1.6 ABG O2 Capacity 18.4 Kristopher Test Yes VBG pH VBG pCO2 VBG HCO3 VBG Total CO2 VBG O2 Sat (Calc) VBG Base Excess VBG Potassium A-a O2 Difference 80.0 Hgb O2 Saturation 94.3 L Glucose Lactate Vent Mode Nasal cannula FiO2 28.0 Blood Gas Comments Crit Value Called To Crit Value Called By Crit Value Read Back Blood Gas Notified Time Sodium 139 Potassium 3.4 L Chloride 102 Carbon Dioxide 24 Anion Gap 16 BUN 19 H Creatinine 0.8 Est GFR ( Amer) > 60 Est GFR (Non-Af Amer) > 60 Random Glucose 253 H Calcium 8.5 Total Bilirubin 1.1 AST 20 ALT 34 Alkaline Phosphatase 108 Total Protein 7.1 Albumin 4.0 Globulin 3.1 Albumin/Globulin Ratio 1.3 Triglycerides 146 D Cholesterol 323 H LDL Cholesterol Direct 193 H HDL Cholesterol 71 H Thyroxine (T4) 7.96 TSH 3rd Generation 0.20 L Venous Blood Potassium Influenza Typ A,B (EIA) reviewed J.P. - EKG Data EKG comments: reviewed J.P. - Imaging and Cardiology Chest x-ray Status: Report reviewed by me (Abigail) Assessment & Plan (1) CAP (community acquired pneumonia) Status: Acute (2) Asthma exacerbation Status: Acute Priority: High (3) COPD (chronic obstructive pulmonary disease) Status: Acute (4) Hyperlipidemia Status: Acute Priority: High (5) Hypertension Status: Chronic Priority: Medium (6) Localized osteoarthritis of both knees Status: Chronic Priority: Medium (7) DM (diabetes mellitus) Status: Acute (8) Hyperglycemia Status: Acute - Assessment and Plan (Free Text) Plan: CT Chest, Blood C-S, Hgb A1C, repeat CBC, CMP, Hgb, continue NC 2 L/M, Levaquin , Duoneb, Solumedrol, Singulair, Diovan , Lipitor , BS control and rest of Tx, PT eval. - Date & Time Date: 05/17/17 Time: 10:40
[2017-05-17 16:12] LABS: URINE BILIRUBIN NEGATIVE (NEGATIVE); URINE BLOOD NEGATIVE (NEGATIVE); URINE CLARITY CLEAR (Clear); URINE COLOR STRAW (YELLOW); URINE GLUCOSE (UA) >=500 mg/dL (Normal); URINE LEUKOCYTE ESTERASE NEG Leu/uL (Negative); URINE NITRATE NEGATIVE (NEGATIVE); URINE PROTEIN NEGATIVE (NEGATIVE); URINE UROBILINOGEN 0.2-1.0 mg/dL (0.2-1.0)
[2017-05-17] MEDS ORDERED: SIMBRINZA PO SCH (17:00)
[2017-05-17] MEDS: Brimonidine 0.2% 50 DROP/5 ML BOTTLE OU SCH (17:31)
[2017-05-17] MEDS: Dorzolamide 2% Ophth Soln OU SCH (17:41)
[2017-05-18] MEDS: Albuterol-Ipratrop 3 mg / 0.5 (3 ml) UD INH SCH ×2 (00:32→04:55)
[2017-05-18] MEDS: MethylPREDNISolone 40 mg Vial IVP SCH ×3 (00:39→16:02)
[2017-05-18] MEDS ORDERED: Sodium Chloride 0.9% 1,000 ML IV SCH (05:45)
[2017-05-18] MEDS ORDERED: Levalbuterol 0.63 MG/3 ML Inhal Soln UD INH PRN (05:56)
[2017-05-18] MEDS ORDERED: Sodium Chloride 0.9% 250 ML IV SCH (06:00)
--- NOTE | 2017-05-18 06:10 | PCM.RRT ---
MACHINE FORMER Nurse Assessment - Ventilator Settings Peak Flow: 370 I.Reason for MACHINE FORMER - A) Acute Change in Patient: Subjective: RRR Location: 407-2 MACHINE FORMER Reason: Tachycardia @ 150s S: MACHINE FORMER was called for 71 yo female w/ hx asthma for tachycardia @150s and palpitation On arrival pt was AAO x3 and lying in bed on NC O2. Pt c/o nervousness and racing heart. Denies chest pain , dizziness or SOB. EKG shows Afib w/ RVR. Diltiazem 5mg IV push was given and 250 cc iv NS bolus was given. Diltiazem 5mg/hr drip was started. pt's duoneb was changed to xopenex 0.63mg q6hr. MACHINE FORMER was called off. Pt's vitals were bp 133/73, HR 123, R 18, Pulse 99%,T 97.9 F. O: General: On NC 02, lying in bed. Not in acute distress. HEENT: AT/NC Respiratory: CTA B/L. No wheezing. Cardio: S1-S2, tachycardic Psych: AAOx3 MACHINE FORMER interventions: EKG: shows Afib w/ RVR CBC BMP BNP troponin x2 echo TSH Free T4 Diltiazem 5mg IVP NS 0.9 % 250 bolus Diltiazem drip at 5mg/hr A/P: 71 yo female admitted for asthma exacerbation, now has Afib w/ RVR 1. Pt stabilized with diltiazem 5 mg IVP 2.Started diltiazed 5mg/hr drip 3.Continue to monitor in tele 4. F/u on labs. MACHINE FORMER Leader: Dr. Rider MACHINE FORMER residents: Dr. Garrett, Dr. Noble
[2017-05-18 06:39] LABS: BASO # 0.2 K/uL (0.0-0.2); BASO % 0.8 % (0.0-2.0); HEMOGLOBIN 13.4 g/dL (12.0-16.0); LYMPH % 4.9 % (20.0-40.0); MEAN CELL VOLUME 86.2 fl (81.0-99.0); MEAN CORPUSCULAR HEMOGLOBIN 28.4 pg (27.0-31.0); MEAN PLATELET VOLUME 7.8 fl (7.2-11.7); MONO # 0.5 K/uL (0.0-0.8); MONO % 2.2 % (0.0-10.0); NEUT # 18.8 K/uL (1.8-7.0); NEUT % 92.1 % (50.0-75.0); NRBC % 0.1 % (0.0-0.0); PLATELET COUNT 218 K/uL (130-400); RBC 4.72 Mil/uL (3.80-5.20); RED CELL DISTRIBUTION WIDTH 14.8 % (11.5-14.5); WHITE BLOOD COUNT 20.4 K/uL (4.8-10.8)
[2017-05-18 06:51] LABS: ALB/GLOB RATIO 1.4 (1.0-2.1); ALBUMIN 4.5 g/dL (3.5-5.0); ALT/SGPT 28 U/L (9-52); AST/SGOT 20 U/L (14-36); BLOOD UREA NITROGEN 23 mg/dl (7-17); CALCIUM 9.8 mg/dL (8.4-10.2); GFR AFRICAN-AMERICAN > 60; GFR NON-AFRICAN AMERICAN > 60
[2017-05-18 06:59] LABS: B-TYPE NATRIURETIC PEPTIDE 294 pg/ml (0-900)
[2017-05-18 07:30] LABS: BLOOD UREA NITROGEN 22 mg/dl (7-17); GFR AFRICAN-AMERICAN > 60; GFR NON-AFRICAN AMERICAN > 60
[2017-05-18 07:31] LABS: CALCIUM 9.9 mg/dL (8.4-10.2)
[2017-05-18] MEDS: Potassium Chloride 10 mEq ER Tab PO SCH (08:49)
[2017-05-18] MEDS: Pantoprazole 40 mg EC Tab PO SCH (08:49)
[2017-05-18] MEDS: levoFLOXacin 750 mg in D5W 750 MG/150 ML BAG IVPB SCH (08:50)
--- NOTE | 2017-05-18 08:59 | CARD ---
APPROVED REPORT EKG Measurement Heart [id number] <Conclusion> Atrial fibrillation with rapid ventricular response Marked ST abnormality, possible lateral subendocardial injury Abnormal ECG
[2017-05-18] MEDS ORDERED: Enoxaparin 40 mg Syringe SC SCH (09:00)
[2017-05-18 10:06] LABS: ANISOCYTOSIS SLIGHT; BANDS 3 % (0-2); LARGE PLATELETS PRESENT; LYMPHOCYTE 6 % (20-50); MONOCYTE 3 % (0-10); NEUTROPHIL 88 % (42-75); PLATELET ESTIMATE NORMAL (NORMAL); TOTAL CELLS COUNTED 100
[2017-05-18] MEDS ORDERED: Ipratropium 0.02% Inhal Soln (0.5 mg/2.5 ml) UD IH PRN (12:48)
--- NOTE | 2017-05-18 13:49 | CON ---
CARDIOLOGY CONSULTATION REASON FOR CONSULTATION: Atrial fibrillation. HISTORY OF PRESENT ILLNESS: The patient is 71 years old female who is unaware of any prior cardiac history, presented with shortness of breath with productive cough of greenish sputum as well as high fever. The patient was noted to be on rapid atrial fibrillation and required IV Cardizem infusion. An EKG 2 days ago revealed sinus rhythm with premature atrial complexes, which is an EKG on admission. SOCIAL HISTORY: Nonsmoker, nondrinker. MEDICATIONS: Cardizem infusion at 5 mg per hour, Diovan 320 mg once a day, hydrochlorothiazide 25 mg once a day, Klor-Con 10 mEq once a day, Lovenox 40 mg subcutaneous twice a day, Lipitor 20 mg daily, Singulair 10 mg at bedtime. REVIEW OF SYSTEMS: No nausea or vomiting. The patient did report fever. No syncope and no prior history of heart attack or stroke. PHYSICAL EXAMINATION: GENERAL: The patient is an elderly female who does not appear to be in any acute distress. VITAL SIGNS: Blood pressure 128/70, heart rate 91, temperature 97.8, respirations 20. HEENT: Normocephalic. CHEST: Bibasilar rhonchi. HEART: S1 and S2 are regular. ABDOMEN: Soft. EXTREMITIES: No edema. 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 Prominent bronchovascular markings noted. LABORATORY DATA: SMA-7: Sodium 138, potassium 3.4, chloride 100, CO2 of 20, glucose 86, BUN 22, creatinine 0.9. CBC: WBC 20.4, hemoglobin 13.4, hematocrit 40.7, platelet count 218,000. PT, PTT and INR are within normal limit. Echocardiographic study performed in 2014 revealed normal ejection fraction. ASSESSMENT: 1. New-onset atrial fibrillation. 2. Pneumonia. 3. Rule out underlying sepsis. 4. Hypokalemia. 5. Hyperlipidemia. RECOMMENDATIONS: Continue current IV Cardizem infusion. Continue Diovan 320 mg once a day, potassium replacement 20 mEq once a day. Discontinue hydrochlorothiazide. Increase Lovenox to a therapeutic dose. Consider Endocrine consult as the patient's lab workup including TSH level is suggestive of hyperthyroidism. In the meantime, I will stat Inderal at 10 mg twice a day. Rocael Cuellar MD
[2017-05-18] MEDS: Dorzolamide 2% Ophth Soln OU SCH (16:00)
[2017-05-18] MEDS: methIMAzole 5 MG TAB PO SCH (16:01)
[2017-05-18] MEDS: Brimonidine 0.2% 50 DROP/5 ML BOTTLE OU SCH (16:03)
--- NOTE | 2017-05-18 16:50 | CT ---
PROCEDURE: CT scan chest dated 05/18/2017 HISTORY: Pneumonia. COMPARISON: None. TECHNIQUE: Contiguous helical/transaxial images were obtained through the chest without intravenous contrast enhancement. Sagittal and coronal reconstructions were performed. Radiation dose (DLP): 557.17 mGy-cm. This CT exam was performed using one or more of the following dose reduction techniques: Automated exposure control, adjustment of the mA and/or kV according to patient size, and/or use of iterative reconstruction technique. FINDINGS: LUNGS: There are chronic scarring changes in both lung bases with fibrosis and coarsened interstitial markings both lung bases consolidation. Additionally, there are ground-glass opacity seen in the upper and lower lobes suggesting air trapping. MEDIASTINUM: Heart is enlarged. No significant pericardial effusion. Ascending thoracic aorta measures approximately 3.2 cm and descending thoracic aorta measures approximately 2.4 cm. Pulmonary trunk measures approximately 3.4 cm. Few small nonspecific mediastinal lymph nodes are present. Evaluation for hilar adenopathy is limited due to the lack of circulating intravenous contrast material. . There is a small hiatal hernia Multiple on small to medium-sized left axillary lymph nodes are present, the largest of which measures approximately 19.5 mm and the 2nd approximately 18 mm in greatest length. PLEURA: Trace bilateral pleural effusions. No evidence of pneumothorax. BONES: Mild multilevel degenerative spondylosis of the thoracic spine. There are no acute compression fractures nor retropulsed fragments. UPPER ABDOMEN: Visualized upper abdominal structures appear grossly unremarkable. OTHER FINDINGS: None. IMPRESSION: Trace bilateral effusions. Bibasilar scarring with fibrosis and coarse interstitial markings. There are also ground-glass opacity seen in the upper lower lobe suggesting air trapping. On there are several small to medium sized left axillary lymph nodes nonspecific. Clinical correlation recommended.
--- NOTE | 2017-05-18 18:38 | CARD ---
APPROVED REPORT EXAM: Two-dimensional and M-mode echocardiogram with Doppler and color Doppler. Other Information Quality : GoodRhythm : NSR INDICATION Atrial Fibrillation 2D DIMENSIONS IVSd1.23 (0.7-1.1cm)LVDd3.86 (3.9-5.9cm) LVOT Diameter2.03 (1.8-2.4cm)PWd0.96 (0.7-1.1cm) IVSs1.22 (0.8-1.2cm)LVDs2.86 (2.5-4.0cm) FS (%) 25.8 %PWs1.18 (0.8-1.2cm) M-Mode DIMENSIONS Left Atrium (MM)3.29 (2.5-4.0cm)IVSd1.12 (0.7-1.1cm) Aortic Root2.76 (2.2-3.7cm)LVDd4.41 (4.0-5.6cm) Aortic Cusp Exc.1.88 (1.5-2.0cm)PWd0.97 (0.7-1.1cm) IVSs1.53 cmFS (%) 49 % LVDs2.26 (2.0-3.8cm)PWs1.50 cm Mitral Valve MV E Gktlgydg93.1cm/sMV DECEL [id number] A Qnrxsyed21.8cm/s MV QZB10pmM/A ratio2.0MVA (PHT)3.94cm2 TDI Lateral E' Peak V12.55cm/sMedial E' Peak V8.72cm/sE/Lateral E'6.5 E/Medial E'9.4 Pulmonary Valve PV Peak Duyavxpw68.3cm/s LEFT VENTRICLE The left ventricle is normal size. There is normal left ventricular wall thickness. The left ventricular function is normal. The left ventricular ejection fraction is - 65%. There is normal LV segmental wall motion. The left ventricular diastolic function is normal. No left ventricle thrombus noted on this study. There is no ventricular septal defect visualized. There is no left ventricular aneurysm. There is no mass noted in the left ventricle. RIGHT VENTRICLE The right ventricle is normal size. There is normal right ventricular wall thickness. The right ventricular systolic function is normal. ATRIA The left atrium size is normal. There is no thrombus suspected in the left atrium. The right atrium size is normal. The interatrial septum is intact with no evidence for an atrial septal defect. AORTIC VALVE The aortic valve is normal in structure. No aortic regurgitation is present. There is no aortic valvular stenosis. MITRAL VALVE The mitral valve is normal in structure. There is no evidence of mitral valve prolapse. There is no mitral valve stenosis. Mitral regurgitation is trace. TRICUSPID VALVE The tricuspid valve is normal in structure. There is trace tricuspid regurgitation. There is no tricuspid valve prolapse or vegetation. There is no tricuspid valve stenosis. PULMONIC VALVE The pulmonary valve is normal in structure. There is no pulmonic valvular regurgitation. GREAT VESSELS The aortic root is normal in size. The IVC is normal in size and collapses >50% with inspiration. PERICARDIAL EFFUSION The pericardium appears normal. There is no pleural effusion. <Conclusion> The left ventricle is normal size and wall thickness. The left ventricular function is normal. The left ventricular ejection fraction is - 65%. The left atrium, right ventricle and right atrium are normal in size. The mitral, aortic and tricuspid valves are normal. There is trace mitral regurgitation and trace tricuspid regurgitation.
--- NOTE | 2017-05-18 19:06 | CP.PCM.PN ---
Subjective - Date & Time of Evaluation Date of Evaluation: 05/18/17 Time of Evaluation: 13:00 - Subjective Subjective: breathing better, chest congestion greatly improved Objective - Vital Signs/Intake and Output Vital Signs (last 24 hours): Temp Pulse Resp BP Pulse Ox 98.2 F 85 20 105/64 19 L 05/18/17 16:54 05/18/17 16:54 05/18/17 13:33 05/18/17 16:54 05/18/17 16:54 - Medications Medications: Current Medications Atorvastatin Calcium (Lipitor) 20 mg PO DAILY [facility] Last Admin: 05/18/17 08:49 Dose: 20 mg Brimonidine Tartrate (Alphagan 0.2% Opht) 1 drop OU BID [facility] Last Admin: 05/18/17 16:03 Dose: 1 drop Dorzolamide HCl (Trusopt) 1 drop OU BID [facility] Last Admin: 05/18/17 16:00 Dose: 1 drop Enoxaparin Sodium (Lovenox) 80 mg SC Q12 [facility] PRN Reason: Protocol Home Med (Patient's Own Medication) 1 unit OU BID [facility] Last Admin: 05/18/17 08:51 Dose: 1 unit Levofloxacin/Dextrose (Levaquin 750mg) 750 mg in 150 mls @ 100 mls/hr IVPB DAILY [facility] PRN Reason: Protocol Last Admin: 05/18/17 08:50 Dose: 100 mls/hr Diltiazem HCl 125 mg/ Sodium (Chloride) 125 mls @ 5 mls/hr IV .Q24H ONE; 5 MG/ HR PRN Reason: Protocol Stop: 05/19/17 05:51 Last Admin: 05/18/17 06:19 Dose: 5 mg/hr, 5 mls/hr Sodium Chloride (Sodium Chloride 0.9%) 250 mls @ 1,000 mls/hr IV .Q15M [facility] Last Admin: 05/18/17 05:45 Dose: 1,000 mls/hr Ipratropium [place] (Atrovent) 0.5 mg IH RQ6 PRN PRN Reason: sob Levalbuterol HCl (Xopenex) 0.63 mg INH RQ6 PRN PRN Reason: Shortness of Breath Methimazole (Tapazole) 5 mg PO TID [facility] Last Admin: 05/18/17 16:01 Dose: 5 mg Methylprednisolone (Solu-Medrol) 30 mg IVP Q8 [facility] Last Admin: 05/18/17 16:02 Dose: 30 mg Montelukast Sodium (Singulair) 10 mg PO HS [facility] Last Admin: 05/17/17 21:26 Dose: 10 mg Pantoprazole Sodium (Protonix Ec Tab) 40 mg PO DAILY [facility] Last Admin: 05/18/17 08:49 Dose: 40 mg Potassium Chloride (Klor-Con 10) 10 meq PO DAILY [facility] Last Admin: 05/18/17 08:49 Dose: 10 meq Promethazine HCl/Codeine (Phenergan/Codeine Oral Syrup) 5 ml PO Q6 PRN PRN Reason: Cough Propranolol HCl (Inderal) 10 mg PO BID [facility] Last Admin: 05/18/17 16:01 Dose: 10 mg Valsartan (Diovan) 320 mg PO DAILY [facility] Last Admin: 05/18/17 08:49 Dose: 320 mg - Labs Labs: 05/18/17 06:27 05/18/17 06:27 PT 11.6 Seconds (9.8-13.1) 05/16/17 17:45 INR 1.0 (0.9-1.2) 05/16/17 17:45 APTT 34.1 Seconds (25.6-37.1) 05/16/17 17:45 - Constitutional Appears: No Acute Distress - Eye Exam Eye Exam: PERRL - ENT Exam ENT Exam: Normal Exam - Neck Exam Neck Exam: Normal Inspection - Respiratory Exam Respiratory Exam: Decreased Breath Sounds (at bases), Rhonchi (scattered) - Cardiovascular Exam Cardiovascular Exam: REGULAR RHYTHM - GI/Abdominal Exam GI & Abdominal Exam: Soft, Normal Bowel Sounds - Extremities Exam Extremities Exam: Tenderness - Back Exam Back Exam: NORMAL INSPECTION (mild R L knee) - Neurological Exam Neurological Exam: Alert, Oriented x3. absent: Motor Sensory Deficit - Psychiatric Exam Psychiatric exam: Normal Affect, Normal Mood Assessment and Plan (1) CAP (community acquired pneumonia) Status: Acute (2) Asthma exacerbation Status: Acute (3) COPD (chronic obstructive pulmonary disease) Status: Acute (4) Atrial fibrillation, new onset Status: Acute (5) Hyperlipidemia Status: Acute (6) Hypertension Status: Chronic (7) Localized osteoarthritis of both knees Status: Chronic (8) Hyperthyroidism Status: Acute (9) High cholesterol Status: Acute (10) Hypokalemia Status: Acute (11) DM (diabetes mellitus) Status: Acute (12) Hyperglycemia Status: Acute - Assessment and Plan (Free Text) Plan: Patient had [employer] yesterday had PAFib Albuterol was DC , on Xopenex, treated with Cardizem drip , there after back to [facility] , Cardizem drip was DC Patient on Inderal , Lovenox , Cardiology consult appreciated, f/u ECHO, Patient on Methimazole , Hyperthyroidism , High Cholesterol on Lipitor , wbc 20.4 Steroid , DM Hyperglicemia , PNA , CT Chest chronic changes , LL consolidation
[2017-05-18] MEDS: Enoxaparin 80 mg Syringe SC SCH (21:49)
[2017-05-19] MEDS: MethylPREDNISolone 40 mg Vial IVP SCH ×3 (00:47→16:26)
--- NOTE | 2017-05-19 00:50 | CON ---
ENDOCRINOLOGY CONSULTATION LOCATION: Room 407. HISTORY OF PRESENT ILLNESS: This is a 71-year-old female with acute exacerbation of asthmatic bronchitis with pneumonia and currently receiving IV steroid therapy with supervening hyperglycemic accelerations and is now being referred for evaluation of abnormal thyroid function studies. A rapid response was called in today with the patient extremely tachycardic with a heart rate of 150 with associated palpitations and shortness of breath and hypoxemia as noted thereof. PAST MEDICAL HISTORY: As mentioned above, history of hypertensive cardiovascular disease and dyslipidemia, history of chronic asthmatic bronchitis with underlying COPD. FAMILY HISTORY: Positive for hypertension and heart disease. SOCIAL HISTORY: The patient has supportive family. No known substance use. REVIEW OF SYSTEMS: As mentioned above. Admits to generalized body weakness with episodic bouts of dizziness and lightheadedness, worse on the day of admission. Also admits to occasional bifrontal headaches with increasing somnolence and lethargy. No chest pains, but admits to progressive shortness of breath initially on exertion and then at rest with a productive cough and supervening pleuritic chest pain as noted. Her oral intake has been variable with nausea and dyspepsia and vague upper abdominal pain. No recent alterations of bowel and urinary patterns. PHYSICAL EXAMINATION: GENERAL: This is an overweight female in no apparent distress. VITAL SIGNS: Blood pressure of 150/90; pulse of 140 beats per minute, irregular; temperature 99; respirations 20. Height is 5 feet 2 inches. Weight is 190 pounds. HEENT: Head normocephalic. Eyes anicteric with pink conjunctivae. Funduscopy not possible at this time. Ears, nose and throat otherwise normal. NECK: Supple. Thyroid gland is normal size. No carotid bruits or cervical adenopathy. Cardiopulmonary: Some adynamic precordium. S1, S2 are rapid and regular. Lungs are clear to auscultation. ABDOMEN: Flat, soft with positive bowel sounds. EXTREMITIES: No peripheral edema. Pulses are +2 bilaterally. LABORATORY DATA: The chemistry showed a BUN of 22, sodium 138, potassium 3.4, chloride 100, CO2 of 20, glucose 286 and creatinine 0.9. Her TSH was 0.2 initially and a repeat level of 0.10 with a total T4 of 7.96 and a free T4 of 1.40. ASSESSMENT: This is a 71-year-old female with subclinical hyperthyroidism with superimposed acute sick euthyroid syndrome, especially with intercurrent intravenous steroid therapy which caused further TSH suppression and presented here with acute exacerbation of chronic obstructive pulmonary disease with supervening rapid atrial fibrillation today as noted. Plan of management as discussed with the patient and staff. We will start her right away on the low dose, which will be titrated towards as tolerated and start her on Tapazole given as 5 mg p.o. t.i.d. after meals to start today as ordered. We will obtain comprehensive thyroid hormonal profile and include the thyroid antibodies to confirm and/or indicate the presence of underlying thyroid autoimmunity. We will also add Levemir 20 units subcutaneous at bedtime daily just for inpatient diabetic management because of the intercurrent intravenous steroid therapy is given. We will continue the high dose correction scale as ordered. We will obtain serial chemistries and supplement accordingly as needed. An A1c will also be done to screen for any underlying impaired glucose tolerance thereof. We will follow. Tasha Olsen MD
[2017-05-19 07:56] LABS: ALB/GLOB RATIO 1.3 (1.0-2.1); ALBUMIN 3.8 g/dL (3.5-5.0); CALCIUM 9.6 mg/dL (8.4-10.2)
[2017-05-19 08:00] LABS: T4 7.29 ug/dl (5.5-11.0)
[2017-05-19] MEDS: Enoxaparin 80 mg Syringe SC SCH ×2 (08:27→21:19)
[2017-05-19] MEDS: Potassium Chloride 10 mEq ER Tab PO SCH (08:27)
[2017-05-19] MEDS: Dorzolamide 2% Ophth Soln OU SCH ×2 (08:28→16:25)
[2017-05-19] MEDS: methIMAzole 5 MG TAB PO SCH ×3 (08:28→17:04)
[2017-05-19] MEDS: Brimonidine 0.2% 50 DROP/5 ML BOTTLE OU SCH ×2 (08:28→16:27)
[2017-05-19] MEDS: levoFLOXacin 750 mg in D5W 750 MG/150 ML BAG IVPB SCH (08:29)
[2017-05-19] MEDS: Pantoprazole 40 mg EC Tab PO SCH (08:29)
--- NOTE | 2017-05-19 09:01 | CARD ---
APPROVED REPORT EKG Measurement Heart [id number] <Conclusion> Normal sinus rhythm Normal ECG
[2017-05-19] MEDS: Promethazine/Cod 6.25mg-10mg/5ml Syr UD PO PRN (09:19)
--- NOTE | 2017-05-19 12:02 | PN ---
DATE: ENDOCRINOLOGY FOLLOWUP NOTE LOCATION: Room 407. SUBJECTIVE: This is a 71-year-old female presenting here with acute exacerbation of asthmatic bronchitis, started on IV steroid therapy with supervening hyperglycemic accelerations as noted thereof. Moreover, she also developed rapid atrial fibrillation with a heart rate of 150 beats per minute yesterday as noted. Today's heart rate is down to 64 and 72 beats per minute as noted. Her glycemic levels are fluctuating, but improved and the latest glucose levels have ranged from 246-286 mg/dL. She was also evaluated to have early subclinical hyperthyroidism with yesterday's evaluation and the latest thyroid study showed a T4 of 7.29 with a TSH of 0.07 done today as noted. The free T4 is 1.27. So at this time, we will continue the Tapazole given as 5 mg p.o. t.i.d. after meals as ordered to allow for dose equilibration. We will also give her a low-dose correction scale using regular insulin as ordered and this is only for inpatient diabetic management because of the intercurrent IV steroids as given. If hyperglycemic levels supervene, we will determine the need to add basal insulin as indicated. She was not on any kind of oral hypoglycemic drug therapy for diabetes at home as noted. We will obtain serial thyroid studies and adjust her dose regimen accordingly. In the meantime, we also obtained thyroid antibodies, which will confirm and/or indicate the presence of underlying thyroid autoimmunity. We will follow and advise accordingly. Tasha Olsen MD
[2017-05-19] MEDS: Insulin Regular 100 units/ml SC SCH ×2 (17:04→21:21)
--- NOTE | 2017-05-19 18:16 | CP.PCM.PN ---
Subjective - Date & Time of Evaluation Date of Evaluation: 05/19/17 Time of Evaluation: 14:20 - Subjective Subjective: F/U CAP Pt breading better, minimal chest congestion, cough with difficulty to bring out phlegms, at times with scanty amount of yellowish phlegms. Objective - Vital Signs/Intake and Output Vital Signs (last 24 hours): Temp Pulse Resp BP Pulse Ox 97.9 F 63 20 154/90 H 94 L 05/19/17 16:16 05/19/17 16:16 05/19/17 16:16 05/19/17 16:16 05/19/17 16:16 - Medications Medications: Current Medications Atorvastatin Calcium (Lipitor) 20 mg PO DAILY [facility] Last Admin: 05/19/17 08:29 Dose: 20 mg Brimonidine Tartrate (Alphagan 0.2% Opht) 1 drop OU BID [facility] Last Admin: 05/19/17 16:27 Dose: 1 drop Dorzolamide HCl (Trusopt) 1 drop OU BID [facility] Last Admin: 05/19/17 16:25 Dose: 1 drop Enoxaparin Sodium (Lovenox) 80 mg SC Q12 [facility] PRN Reason: Protocol Last Admin: 05/19/17 08:27 Dose: 80 mg Home Med (Patient's Own Medication) 1 unit OU BID [facility] Last Admin: 05/18/17 08:51 Dose: 1 unit Levofloxacin/Dextrose (Levaquin 750mg) 750 mg in 150 mls @ 100 mls/hr IVPB DAILY [facility] PRN Reason: Protocol Last Admin: 05/19/17 08:29 Dose: 100 mls/hr Insulin Human Regular (Humulin R) 0 units SC ACHS [facility] PRN Reason: Protocol Last Admin: 05/19/17 17:04 Dose: 3 units Ipratropium [place] (Atrovent) 0.5 mg IH RQ6 PRN PRN Reason: sob Levalbuterol HCl (Xopenex) 0.63 mg INH RQ6 PRN PRN Reason: Shortness of Breath Methimazole (Tapazole) 5 mg PO TID [facility] Last Admin: 05/19/17 17:04 Dose: 5 mg Methylprednisolone (Solu-Medrol) 30 mg IVP Q8 [facility] Last Admin: 05/19/17 16:26 Dose: 30 mg Montelukast Sodium (Singulair) 10 mg PO HS [facility] Last Admin: 05/18/17 21:50 Dose: 10 mg Pantoprazole Sodium (Protonix Ec Tab) 40 mg PO DAILY [facility] Last Admin: 05/19/17 08:29 Dose: 40 mg Potassium Chloride (Klor-Con 10) 10 meq PO DAILY [facility] Last Admin: 05/19/17 08:27 Dose: 10 meq Promethazine HCl/Codeine (Phenergan/Codeine Oral Syrup) 5 ml PO Q6 PRN PRN Reason: Cough Last Admin: 05/19/17 09:19 Dose: 5 ml Valsartan (Diovan) 320 mg PO DAILY [facility] Last Admin: 05/19/17 08:27 Dose: 320 mg - Labs Labs: 05/18/17 06:27 05/19/17 05:30 PT 11.6 Seconds (9.8-13.1) 05/16/17 17:45 INR 1.0 (0.9-1.2) 05/16/17 17:45 APTT 34.1 Seconds (25.6-37.1) 05/16/17 17:45 - Constitutional Appears: No Acute Distress - Head Exam Head Exam: NORMAL INSPECTION - Eye Exam Eye Exam: PERRL - ENT Exam ENT Exam: Normal Exam - Neck Exam Neck Exam: Normal Inspection - Respiratory Exam Respiratory Exam: Decreased Breath Sounds (at bases), Rhonchi (scattered at bases) - Cardiovascular Exam Cardiovascular Exam: REGULAR RHYTHM - GI/Abdominal Exam GI & Abdominal Exam: Soft, Normal Bowel Sounds - Extremities Exam Extremities Exam: Tenderness (R-L knee) - Back Exam Back Exam: NORMAL INSPECTION - Neurological Exam Neurological Exam: Alert, Oriented x3. absent: Motor Sensory Deficit - Psychiatric Exam Psychiatric exam: Normal Mood - Skin Skin Exam: Warm Assessment and Plan (1) CAP (community acquired pneumonia) Status: Acute (2) Asthma exacerbation Status: Acute (3) COPD (chronic obstructive pulmonary disease) Status: Acute (4) Atrial fibrillation, new onset Status: Acute (5) Hyperlipidemia Status: Acute (6) Hypertension Status: Chronic (7) Localized osteoarthritis of both knees Status: Chronic (8) Hyperthyroidism Status: Acute (9) High cholesterol Status: Acute (10) DM (diabetes mellitus) Status: Acute (11) Hyperglycemia Status: Acute - Assessment and Plan (Free Text) Plan: Continue current Tx, Pt with sinus rhythm since yesterday, Cardiology DC Inderal , still on Lovenox 80 q 12, no requesting Atrovent Xopenex for sob,continue rest of tx
[2017-05-19] MEDS: Benzocaine/Menthol (Cepacol) Lozenge PO SCH (22:29)
--- NOTE | 2017-05-20 00:16 | PN ---
DATE: SUBJECTIVE: The patient was evaluated by Dr. Olsen, physical therapy coordinator, and the assessment was subclinical hypothyroidism with superimposed acute sick euthyroid syndrome. The patient was already started on Tapazole 5 mg t.i.d. The patient is currently in sinus rhythm. PHYSICAL EXAMINATION: VITAL SIGNS: Blood pressure 154/90, heart rate 63, temperature 97.9, respirations 20. HEENT: Normocephalic. CHEST: Bilateral rhonchi. HEART: S1 and S2 regular. EXTREMITIES: No edema. LABORATORY DATA: SMA-7 is within normal limits, except for glucose is 246, and BUN of 32. Hemoglobin and hematocrit within normal limits. White count 20.4, platelet count is within normal limits. The echocardiography study revealed normal ejection fraction, trace mitral and trace tricuspid insufficiency. ASSESSMENT: 1. Hyperthyroidism. 2. Paroxysmal atrial fibrillation. 3. Presumptive pneumonia. RECOMMENDATIONS: Continue Diovan 320 mg daily, Levaquin 750 mg daily, Lipitor 20 mg once a day, therapeutic subcutaneous Lovenox mg twice a day, Tapazole 5 mg t.i.d. Consider maintaining the patient on Coumadin or a NOAC agent. Rocael Cuellar MD
[2017-05-20] MEDS: MethylPREDNISolone 40 mg Vial IVP SCH ×3 (00:17→17:23)
[2017-05-20] MEDS: Benzocaine/Menthol (Cepacol) Lozenge PO SCH ×5 (06:15→21:53)
[2017-05-20] MEDS: Insulin Regular 100 units/ml SC SCH ×4 (06:31→21:51)
[2017-05-20 07:50] LABS: BASO % 0.1 % (0.0-2.0); HEMOGLOBIN 12.7 g/dL (12.0-16.0); LYMPH # 1.1 K/uL (1.0-4.3); LYMPH % 12.1 % (20.0-40.0); MEAN CELL VOLUME 86.5 fl (81.0-99.0); MEAN CORPUSCULAR HEMOGLOBIN 28.5 pg (27.0-31.0); MEAN CORPUSCULAR HGB CONC 32.9 g/dL (33.0-37.0); MEAN PLATELET VOLUME 7.3 fl (7.2-11.7); MONO # 0.3 K/uL (0.0-0.8); MONO % 3.6 % (0.0-10.0); NEUT # 7.6 K/uL (1.8-7.0); NEUT % 84.2 % (50.0-75.0); RBC 4.44 Mil/uL (3.80-5.20); RED CELL DISTRIBUTION WIDTH 14.9 % (11.5-14.5); WHITE BLOOD COUNT 9.1 K/uL (4.8-10.8)
[2017-05-20 08:03] LABS: ALB/GLOB RATIO 1.3 (1.0-2.1); ALBUMIN 3.5 g/dL (3.5-5.0); ALT/SGPT 27 U/L (9-52); AST/SGOT 18 U/L (14-36); BLOOD UREA NITROGEN 36 mg/dl (7-17); CALCIUM 9.1 mg/dL (8.4-10.2); GFR AFRICAN-AMERICAN > 60; GFR NON-AFRICAN AMERICAN 55
[2017-05-20 08:14] LABS: T4 7.66 ug/dl (5.5-11.0)
[2017-05-20] MEDS: Brimonidine 0.2% 50 DROP/5 ML BOTTLE OU SCH ×2 (09:59→17:21)
[2017-05-20] MEDS: Pantoprazole 40 mg EC Tab PO SCH (10:00)
[2017-05-20] MEDS: levoFLOXacin 750 mg in D5W 750 MG/150 ML BAG IVPB SCH (10:00)
[2017-05-20] MEDS: methIMAzole 5 MG TAB PO SCH ×3 (10:00→17:24)
[2017-05-20] MEDS: Potassium Chloride 10 mEq ER Tab PO SCH (10:00)
[2017-05-20] MEDS: Dorzolamide 2% Ophth Soln OU SCH ×2 (10:01→17:24)
[2017-05-20] MEDS: Enoxaparin 80 mg Syringe SC SCH ×2 (10:02→21:53)
--- NOTE | 2017-05-20 12:05 | PN ---
DATE: ENDOCRINOLOGY FOLLOWUP NOTE LOCATION: Room 407. SUBJECTIVE: This is a 71-year-old female with recent onset of rapid atrial fibrillation and was evaluated to have subclinical hyperthyroidism and started on Tapazole medications as tolerated thereof. She also has transient hyperglycemic accelerations with the initiation of IV steroid therapy for management of acute exacerbation of asthmatic bronchitis with underlying COPD as noted. Her glycemic values are ranging from 239-273 mg/dL. Her latest chemistry showed a BUN of 36, sodium 135, potassium 4.0, chloride 100, CO2 of 25, glucose 247 and creatinine 1.0. So at this time we will add basal insulin with Levemir to be given as 12 units subcu at bedtime daily as ordered. We will continue the low-dose correction scale using regular insulin given 4 times a day as ordered. Her IV steroids are being tapered down to Solu-Medrol at 30 mg every 8 hours as ordered. Moreover, her latest thyroid studies showed a T4 of 7.66 with a free T4 of 1.20 and a TSH of 0.06. So at this time, we will continue the low-dose Tapazole given as 5 mg p.o. t.i.d. as ordered. We will obtain serial thyroid studies and adjust her dose regimen accordingly. We will also continue the same low-dose correction scale using regular insulin as ordered. We will obtain serial chemistries and supplement accordingly as needed. We will follow up with you. Tasha Olsen MD
--- NOTE | 2017-05-20 17:16 | CP.PCM.PN ---
Subjective - Date & Time of Evaluation Date of Evaluation: 05/20/17 Time of Evaluation: 13:00 - Subjective Subjective: F/U CAP / Asthma Exacerbation. Pt breathing better, less chest congestion, cough with scanty yellowish phlegms. Objective - Vital Signs/Intake and Output Vital Signs (last 24 hours): Temp Pulse Resp BP Pulse Ox 98.6 F 66 18 147/83 96 05/20/17 15:53 05/20/17 15:53 05/20/17 15:53 05/20/17 15:53 05/20/17 15:53 - Medications Medications: Current Medications Atorvastatin Calcium (Lipitor) 20 mg PO DAILY [facility] Last Admin: 05/20/17 10:00 Dose: 20 mg Benzocaine/Menthol (Cepacol Sore Throat) 1 clinton PO Q4H [facility] Last Admin: 05/20/17 09:59 Dose: 1 clinton Brimonidine Tartrate (Alphagan 0.2% Opht) 1 drop OU BID [facility] Last Admin: 05/20/17 09:59 Dose: 1 drop Dorzolamide HCl (Trusopt) 1 drop OU BID [facility] Last Admin: 05/20/17 10:01 Dose: 1 drop Enoxaparin Sodium (Lovenox) 80 mg SC Q12 [facility] PRN Reason: Protocol Last Admin: 05/20/17 10:02 Dose: 80 mg Home Med (Patient's Own Medication) 1 unit OU BID [facility] Last Admin: 05/18/17 08:51 Dose: 1 unit Levofloxacin/Dextrose (Levaquin 750mg) 750 mg in 150 mls @ 100 mls/hr IVPB DAILY [facility] PRN Reason: Protocol Last Admin: 05/20/17 10:00 Dose: 100 mls/hr Insulin Detemir (Levemir) 12 units SC HS [facility] Insulin Human Regular (Humulin R) 0 units SC ACHS [facility] PRN Reason: Protocol Last Admin: 05/20/17 12:30 Dose: 3 units Ipratropium [place] (Atrovent) 0.5 mg IH RQ6 PRN PRN Reason: sob Levalbuterol HCl (Xopenex) 0.63 mg INH RQ6 PRN PRN Reason: Shortness of Breath Methimazole (Tapazole) 5 mg PO TID [facility] Last Admin: 05/20/17 13:25 Dose: 5 mg Methylprednisolone (Solu-Medrol) 30 mg IVP Q8 [facility] Last Admin: 05/20/17 10:01 Dose: 30 mg Montelukast Sodium (Singulair) 10 mg PO HS [facility] Last Admin: 05/19/17 21:19 Dose: 10 mg Pantoprazole Sodium (Protonix Ec Tab) 40 mg PO DAILY [facility] Last Admin: 05/20/17 10:00 Dose: 40 mg Potassium Chloride (Klor-Con 10) 10 meq PO DAILY [facility] Last Admin: 05/20/17 10:00 Dose: 10 meq Promethazine HCl/Codeine (Phenergan/Codeine Oral Syrup) 5 ml PO Q6 PRN PRN Reason: Cough Last Admin: 05/19/17 09:19 Dose: 5 ml Valsartan (Diovan) 320 mg PO DAILY [facility] Last Admin: 05/20/17 10:00 Dose: 320 mg - Labs Labs: 05/20/17 08:35 05/20/17 06:30 PT 11.6 Seconds (9.8-13.1) 05/16/17 17:45 INR 1.0 (0.9-1.2) 05/16/17 17:45 APTT 34.1 Seconds (25.6-37.1) 05/16/17 17:45 - Constitutional Appears: No Acute Distress - Head Exam Head Exam: NORMAL INSPECTION - Eye Exam Eye Exam: PERRL - ENT Exam ENT Exam: Normal Exam - Neck Exam Neck Exam: Normal Inspection - Respiratory Exam Respiratory Exam: Decreased Breath Sounds (at bases), Rhonchi (scattered) - Cardiovascular Exam Cardiovascular Exam: REGULAR RHYTHM - GI/Abdominal Exam GI & Abdominal Exam: Soft, Normal Bowel Sounds - Extremities Exam Extremities Exam: Tenderness (mild R-L knee) - Back Exam Back Exam: NORMAL INSPECTION - Neurological Exam Neurological Exam: Alert, Oriented x3. absent: Motor Sensory Deficit - Psychiatric Exam Psychiatric exam: Normal Mood - Skin Skin Exam: Warm Assessment and Plan (1) CAP (community acquired pneumonia) Status: Acute (2) Asthma exacerbation Status: Acute (3) COPD (chronic obstructive pulmonary disease) Status: Acute (4) Atrial fibrillation, new onset Status: Acute (5) Hyperlipidemia Status: Acute (6) Hypertension Status: Chronic (7) Localized osteoarthritis of both knees Status: Chronic (8) Hyperthyroidism Status: Acute (9) High cholesterol Status: Acute (10) DM (diabetes mellitus) Status: Acute (11) Hyperglycemia Status: Acute - Assessment and Plan (Free Text) Plan: Continue Levaquin, Solumedrol, Phenergan with Co , Methymazole , Insulin , and rest of Tx.
[2017-05-20] MEDS: Promethazine/Cod 6.25mg-10mg/5ml Syr UD PO PRN (17:20)
--- NOTE | 2017-05-20 19:04 | PN ---
DATE: SUBJECTIVE: The patient denies chest pain. She is experiencing productive cough. She is in sinus rhythm. PHYSICAL EXAMINATION: VITAL SIGNS: Blood pressure 147/86, heart rate 68, temperature 97.8, respirations 20. HEENT: Normocephalic. CHEST: Clear. HEART: S1 and S2, regular. EXTREMITIES: No edema. LABORATORY DATA: Hemoglobin, hematocrit, white count, and platelet count are within normal limits. Today's SMA-7 is within normal limits except for glucose of 247 and BUN of 36. ASSESSMENT: 1. Pneumonia. 2. Paroxysmal atrial fibrillation. 3. Hyperthyroidism. RECOMMENDATIONS: Continue Diovan 320 mg once daily, therapeutic subcutaneous Lovenox 80 mg twice a day, and Tapazole 5 mg t.i.d. Rocael Cuellar MD
[2017-05-20] MEDS: Insulin Detemir 100 Units/ml Inj SC SCH (21:54)
[2017-05-21] MEDS: MethylPREDNISolone 40 mg Vial IVP SCH ×3 (00:40→21:50)
[2017-05-21] MEDS: Benzocaine/Menthol (Cepacol) Lozenge PO SCH ×5 (04:41→21:52)
[2017-05-21] MEDS: Insulin Regular 100 units/ml SC SCH ×5 (06:43→21:52)
[2017-05-21] MEDS: Enoxaparin 80 mg Syringe SC SCH (08:53)
[2017-05-21] MEDS: methIMAzole 5 MG TAB PO SCH ×2 (08:53→16:46)
[2017-05-21] MEDS: levoFLOXacin 750 mg in D5W 750 MG/150 ML BAG IVPB SCH (08:55)
[2017-05-21] MEDS: Pantoprazole 40 mg EC Tab PO SCH (08:55)
[2017-05-21] MEDS: Brimonidine 0.2% 50 DROP/5 ML BOTTLE OU SCH ×2 (08:56→16:40)
[2017-05-21] MEDS: Dorzolamide 2% Ophth Soln OU SCH ×2 (08:57→16:46)
[2017-05-21] MEDS: Potassium Chloride 10 mEq ER Tab PO SCH (08:58)
[2017-05-21 12:33] LABS: INR 1.1 (0.9-1.2); PROTHROMBIN TIME 12.2 Seconds (9.8-13.1)
--- NOTE | 2017-05-21 13:27 | PN ---
DATE: FOLLOWUP SUBJECTIVE: The patient denies chest pain. She is experiencing productive cough. PHYSICAL EXAMINATION: VITAL SIGNS: Blood pressure 150/84, heart rate 56, temperature 97.8, respirations 18. HEENT: Normocephalic. CHEST: Bilateral rhonchi. HEART: S1 and S2 regular. EXTREMITIES: No edema. LABORATORY DATA: Today's blood sugars 236 and 278. ASSESSMENT: 1. Paroxysmal atrial fibrillation. 2. Hyperthyroidism. 3. Pneumonia. 4. Uncontrolled diabetes mellitus. RECOMMENDATIONS: Continue Eliquis 2.5 mg twice a day, Levaquin 750 mg subcutaneously daily, Klor-Con at 10 mEq once a day, Tapazole 5 mg t.i.d. Lovenox was discontinued today, which I agree with the current management. Rocael Cuellar MD
[2017-05-21] MEDS: Promethazine/Cod 6.25mg-10mg/5ml Syr UD PO PRN (16:54)
--- NOTE | 2017-05-21 17:30 | CP.PCM.PN ---
Subjective - Date & Time of Evaluation Date of Evaluation: 05/21/17 Time of Evaluation: 13:00 - Subjective Subjective: F/U CAP / Asthma exacerbation. breathing better, less chest congestion Objective - Vital Signs/Intake and Output Vital Signs (last 24 hours): Temp Pulse Resp BP Pulse Ox 97.4 F L 74 18 138/84 97 05/21/17 15:48 05/21/17 15:48 05/21/17 15:48 05/21/17 15:48 05/21/17 15:48 - Medications Medications: Current Medications Apixaban (Eliquis) 2.5 mg PO BID [facility] PRN Reason: Protocol Last Admin: 05/21/17 16:41 Dose: 2.5 mg Atorvastatin Calcium (Lipitor) 20 mg PO DAILY [facility] Last Admin: 05/21/17 08:54 Dose: 20 mg Benzocaine/Menthol (Cepacol Sore Throat) 1 clinton PO Q4H [facility] Last Admin: 05/21/17 16:41 Dose: 1 clinton Brimonidine Tartrate (Alphagan 0.2% Opht) 1 drop OU BID [facility] Last Admin: 05/21/17 16:40 Dose: 1 drop Dorzolamide HCl (Trusopt) 1 drop OU BID [facility] Last Admin: 05/21/17 16:46 Dose: 1 drop Home Med (Patient's Own Medication) 1 unit OU BID [facility] Last Admin: 05/18/17 08:51 Dose: 1 unit Levofloxacin/Dextrose (Levaquin 750mg) 750 mg in 150 mls @ 100 mls/hr IVPB DAILY [facility] PRN Reason: Protocol Last Admin: 05/21/17 08:55 Dose: 100 mls/hr Insulin Detemir (Levemir) 12 units SC HS [facility] Last Admin: 05/20/17 21:54 Dose: 12 u Insulin Human Regular (Humulin R) 0 units SC ACHS [facility] PRN Reason: Protocol Last Admin: 05/21/17 16:43 Dose: 3 units Ipratropium [place] (Atrovent) 0.5 mg IH RQ6 PRN PRN Reason: sob Levalbuterol HCl (Xopenex) 0.63 mg INH RQ6 PRN PRN Reason: Shortness of Breath Methimazole (Tapazole) 5 mg PO BID [facility] Last Admin: 05/21/17 16:46 Dose: 5 mg Methylprednisolone (Solu-Medrol) 30 mg IVP Q12 [facility] Montelukast Sodium (Singulair) 10 mg PO HS [facility] Last Admin: 05/20/17 21:55 Dose: 10 mg Pantoprazole Sodium (Protonix Ec Tab) 40 mg PO DAILY [facility] Last Admin: 05/21/17 08:55 Dose: 40 mg Potassium Chloride (Klor-Con 10) 10 meq PO DAILY [facility] Last Admin: 05/21/17 08:58 Dose: 10 meq Promethazine HCl/Codeine (Phenergan/Codeine Oral Syrup) 5 ml PO Q6 PRN PRN Reason: Cough Last Admin: 05/21/17 16:54 Dose: 5 ml Valsartan (Diovan) 320 mg PO DAILY [facility] Last Admin: 05/21/17 08:54 Dose: 320 mg - Labs Labs: 05/20/17 08:35 05/20/17 06:30 PT 12.2 Seconds (9.8-13.1) 05/21/17 11:55 INR 1.1 (0.9-1.2) 05/21/17 11:55 APTT 34.1 Seconds (25.6-37.1) 05/16/17 17:45 - Constitutional Appears: No Acute Distress - Head Exam Head Exam: NORMAL INSPECTION - Eye Exam Eye Exam: PERRL - ENT Exam ENT Exam: Normal Exam - Neck Exam Neck Exam: Normal Inspection - Respiratory Exam Respiratory Exam: Decreased Breath Sounds (at bases), Rhonchi (scattered) - Cardiovascular Exam Cardiovascular Exam: REGULAR RHYTHM - GI/Abdominal Exam GI & Abdominal Exam: Soft, Normal Bowel Sounds - Extremities Exam Extremities Exam: Tenderness (mild R-L knee) - Back Exam Back Exam: NORMAL INSPECTION - Neurological Exam Neurological Exam: Alert, Oriented x3. absent: Motor Sensory Deficit - Psychiatric Exam Psychiatric exam: Normal Mood - Skin Skin Exam: Warm Assessment and Plan (1) CAP (community acquired pneumonia) Status: Acute (2) Asthma exacerbation Status: Acute (3) COPD (chronic obstructive pulmonary disease) Status: Acute (4) Atrial fibrillation, new onset Assessment & Plan: Continue Levaquin, Xopenex , Solu Medrol Eliquis , Tapazole and rest of treatment Status: Acute (5) Hyperlipidemia Status: Acute (6) Hypertension Status: Chronic (7) Localized osteoarthritis of both knees Status: Chronic (8) Hyperthyroidism Status: Acute (9) High cholesterol Status: Acute (10) DM (diabetes mellitus) Status: Acute - Assessment and Plan (Free Text) Plan: contiinue Solu Medrol , Levaquin , Xopenex , Atrovent , Methimazole , Eliquis , Insulin and rest of treatment
--- NOTE | 2017-05-21 18:47 | PN ---
DATE: LOCATION: In room 407. SUBJECTIVE: This is a 71-year-old female with recent acute exacerbation of COPD and asthmatic bronchitis and currently on IV steroid therapy with Solu-Medrol at 30 mg IV every 12 hours as tapered down, with expected transient hyperglycemic accelerations as noted thereof. She also had overt hyperthyroidism with sudden onset of rapid atrial fibrillation and is currently tolerating the medical therapy with Tapazole medication as given. Her glucose levels have ranged from 236 to 278 mg/dL. The latest chemistry showed a BUN of 36, sodium 135, potassium 4.0, chloride 100, CO2 of 25, glucose 247 and creatinine 1.0. Her latest thyroid study showed a T4 of 7.66 with a TSH of 0.06 and a free T4 of 1.20. ASSESSMENT AND PLAN: So at this time, we will lower the Tapazole to 5 mg b.i.d. as given and this will be started today as noted. We will obtain serial chemistries and supplement accordingly as needed. We will also continue the same basal and bolus insulin regimen as given with Levemir given as 12 units subcu at bedtime daily and low-dose correction scale using regular insulin as ordered. We will follow and advise accordingly. Tasha Olsen MD
[2017-05-21] MEDS: Insulin Detemir 100 Units/ml Inj SC SCH (21:53)
[2017-05-22] MEDS: Promethazine/Cod 6.25mg-10mg/5ml Syr UD PO PRN (04:03)
[2017-05-22] MEDS: Benzocaine/Menthol (Cepacol) Lozenge PO SCH ×5 (04:04→17:16)
[2017-05-22] MEDS: Insulin Regular 100 units/ml SC SCH ×3 (06:44→17:13)
[2017-05-22] MEDS: Brimonidine 0.2% 50 DROP/5 ML BOTTLE OU SCH ×2 (09:58→17:10)
[2017-05-22] MEDS: levoFLOXacin 750 mg in D5W 750 MG/150 ML BAG IVPB SCH (10:03)
[2017-05-22] MEDS: MethylPREDNISolone 40 mg Vial IVP SCH (10:04)
[2017-05-22] MEDS: Pantoprazole 40 mg EC Tab PO SCH (10:04)
[2017-05-22] MEDS: methIMAzole 5 MG TAB PO SCH ×2 (10:06→17:14)
[2017-05-22] MEDS: Dorzolamide 2% Ophth Soln OU SCH ×2 (10:06→17:11)
[2017-05-22] MEDS: Potassium Chloride 10 mEq ER Tab PO SCH (10:12)
[2017-05-22 12:11] VITALS: O2SAT 97
--- NOTE | 2017-05-22 13:19 | PN ---
DATE: SUBJECTIVE: The patient is experiencing productive cough and shortness of breath, no palpitations or retrosternal chest pain. PHYSICAL EXAMINATION: VITAL SIGNS: Blood pressure 151/84, heart rate 56, temperature 97.5, respirations 18. HEENT: Normocephalic. CHEST: Bilateral rhonchi. HEART: S1 and S2 regular. EXTREMITIES: No edema. LABORATORY DATA: Today's blood sugar is 185 and 194. OMAR screen is negative. ASSESSMENT AND PLAN: 1. Acute exacerbation of bronchial asthma. 2. Paroxysmal atrial fibrillation. 3. Hyperthyroidism. 4. Uncontrolled diabetes mellitus. RECOMMENDATIONS: Continue Diovan at 320 mg once a day, Eliquis at 2.5 mg once a day, Atrovent at 0.5 mg inhalation q.6 hours, Klor-Con at 10 mEq once a day, Lipitor 20 mg once a day, Tapazole 5 mg twice a day, Solu-Medrol q.12 hours. Consider repeat chest x-ray, PA and lateral. Rocael Cuellar MD
--- NOTE | 2017-05-22 15:19 | CP.PCM.PN ---
Subjective - Date & Time of Evaluation Date of Evaluation: 05/22/17 Time of Evaluation: 12:40 - Subjective Subjective: F/U CAP Pt awake, no SOB, occasional dry cough,at times with scanty yellowish phlegms. no KAUFFMAN. Objective - Vital Signs/Intake and Output Vital Signs (last 24 hours): Temp Pulse Resp BP Pulse Ox 98 F 65 18 129/75 97 05/22/17 12:10 05/22/17 12:10 05/22/17 12:10 05/22/17 12:10 05/22/17 12:10 Intake and Output: 05/22/17 05/22/17 06:59 18:59 Intake Total 300 Balance 300 - Medications Medications: Current Medications Apixaban (Eliquis) 2.5 mg PO BID [facility] PRN Reason: Protocol Last Admin: 05/22/17 10:02 Dose: 2.5 mg Atorvastatin Calcium (Lipitor) 20 mg PO DAILY [facility] Last Admin: 05/22/17 10:04 Dose: 20 mg Benzocaine/Menthol (Cepacol Sore Throat) 1 clinton PO Q4H [facility] Last Admin: 05/22/17 10:00 Dose: 1 clinton Brimonidine Tartrate (Alphagan 0.2% Opht) 1 drop OU BID [facility] Last Admin: 05/22/17 09:58 Dose: 1 drop Dorzolamide HCl (Trusopt) 1 drop OU BID [facility] Last Admin: 05/22/17 10:06 Dose: 1 drop Home Med (Patient's Own Medication) 1 unit OU BID [facility] Last Admin: 05/18/17 08:51 Dose: 1 unit Levofloxacin/Dextrose (Levaquin 750mg) 750 mg in 150 mls @ 100 mls/hr IVPB DAILY [facility] PRN Reason: Protocol Last Admin: 05/22/17 10:03 Dose: 100 mls/hr Insulin Detemir (Levemir) 12 units SC HS [facility] Last Admin: 05/21/17 21:53 Dose: 12 u Insulin Human Regular (Humulin R) 0 units SC ACHS [facility] PRN Reason: Protocol Last Admin: 05/22/17 14:26 Dose: 3 units Ipratropium [place] (Atrovent) 0.5 mg IH RQ6 PRN PRN Reason: sob Levalbuterol HCl (Xopenex) 0.63 mg INH RQ6 PRN PRN Reason: Shortness of Breath Methimazole (Tapazole) 5 mg PO BID [facility] Last Admin: 05/22/17 10:06 Dose: 5 mg Methylprednisolone (Solu-Medrol) 30 mg IVP Q12 [facility] Last Admin: 05/22/17 10:04 Dose: 30 mg Montelukast Sodium (Singulair) 10 mg PO HS [facility] Last Admin: 05/21/17 21:51 Dose: 10 mg Pantoprazole Sodium (Protonix Ec Tab) 40 mg PO DAILY [facility] Last Admin: 05/22/17 10:04 Dose: 40 mg Potassium Chloride (Klor-Con 10) 10 meq PO DAILY [facility] Last Admin: 05/22/17 10:12 Dose: 10 meq Promethazine HCl/Codeine (Phenergan/Codeine Oral Syrup) 5 ml PO Q6 PRN PRN Reason: Cough Last Admin: 05/22/17 04:03 Dose: 5 ml Valsartan (Diovan) 320 mg PO DAILY [facility] Last Admin: 05/22/17 10:01 Dose: 320 mg - Labs Labs: 05/20/17 08:35 05/20/17 06:30 PT 12.2 Seconds (9.8-13.1) 05/21/17 11:55 INR 1.1 (0.9-1.2) 05/21/17 11:55 APTT 34.1 Seconds (25.6-37.1) 05/16/17 17:45 - Constitutional Appears: No Acute Distress - Head Exam Head Exam: NORMAL INSPECTION - Eye Exam Eye Exam: PERRL - ENT Exam ENT Exam: Normal Exam - Neck Exam Neck Exam: Normal Inspection - Respiratory Exam Respiratory Exam: Decreased Breath Sounds (at bases) - Cardiovascular Exam Cardiovascular Exam: REGULAR RHYTHM - GI/Abdominal Exam GI & Abdominal Exam: Soft, Normal Bowel Sounds - Extremities Exam Extremities Exam: Tenderness (mild R-L knee) - Back Exam Back Exam: NORMAL INSPECTION - Neurological Exam Neurological Exam: Alert, Oriented x3. absent: Motor Sensory Deficit - Psychiatric Exam Psychiatric exam: Normal Mood - Skin Skin Exam: Warm Assessment and Plan (1) CAP (community acquired pneumonia) Status: Acute (2) Asthma exacerbation Status: Acute (3) COPD (chronic obstructive pulmonary disease) Status: Acute (4) Atrial fibrillation, new onset Status: Acute (5) Hyperlipidemia Status: Acute (6) Hypertension Status: Chronic (7) Localized osteoarthritis of both knees Status: Chronic (8) Hyperthyroidism Status: Acute (9) High cholesterol Status: Acute (10) DM (diabetes mellitus) Status: Acute - Assessment and Plan (Free Text) Plan: Pt improved and stable to be discharged, Continue Levaquin po as directed, taper Prednisone, follows instruction medication list, f/u PMD in one week.
[2017-05-22 15:46] VITALS: PULSE 62; RESP 20; TEMP 98.2
[2017-05-22 15:58] VITALS: BP 156/84
--- NOTE | 2017-05-22 17:43 | PN ---
DATE: ENDOCRINOLOGY FOLLOWUP NOTE LOCATION: Room 407, bed 2. SUBJECTIVE: This is a 71-year-old female with recent acute exacerbation of COPD and started on IV steroids therapy with supervening hyperglycemic accelerations and is now being followed closely for metabolic management. She also had recent onset of rapid atrial fibrillation, currently on Tapazole medication as tolerated very well at this time. Her latest chemistry showed a BUN of 36, sodium 135, potassium 4.0, chloride of 100, CO2 of 25, glucose 247, and creatinine 1.0. Her glucose levels have ranged from 185 to 194 and 296 mg/dL. So, at this time, we will continue the low dose correction scale, but discontinue the basal and bolus insulin regimen as she is being prepped for eventual discharge today. Because she will be going on oral steroid therapy, we would recommend that she stays on glipizide given as 5 mg b.i.d. as ordered. We are awaiting the results of the thyroid antibodies to confirm and/or indicate the presence of thyroid autoimmunity. We will also obtain serial chemistries and supplement accordingly as needed. We will follow and advise accordingly. Tasha Olsen MD
[2017-05-23 16:51] LABS: TSI <89 % baseline (<140)
--- NOTE | 2017-05-24 07:57 | PQF SEPSIS ---
Dr. Mauro ED Physician Documentation Report documented sepsis. After study was diagnosis of sepsis ruled in or out? This form is a permanent part of the medical record Clarification of your documentation is requested to better reflect the severity of illness and intensity of treatment of your patient. Indicators present [] Temp < 96.8 or > 100.4 [] WBC count > 12,000/mm3 or <000/mm3 or 10% immature neutrophils [] Heart Rate > 90 [] Respiratory Rate > 20 [] Fever or hypothermia [] Chills [] Positive blood cultures [] Hypotension [] Metabolic acidosis (Elevated lactate level, anion gap or reduced blood pH) [] Acute confusion /Altered Mental Status [] Shock [] Other: [] Location in the medical record that reflects the above clinical findings: [] Treatment Provided: [] PHYSICIAN'S RESPONSE Based on your medical judgment of the clinical indicators outlined above, are you treating this patient for a known or suspected: [] Sepsis / Septicemia Please specify organism if known [] [] SIRS (Systemic Inflammatory Response Syndrome) [] Severe Sepsis (Sepsis with Associated Organ Dysfunction) [] Fever of Unknown Origin [] Other, please indicate: [] [] If Unable to Determine, please check the box, sign and date. Present On Admission (POA) Indicator: [] Present at the time of admission [] Not present at the time of admission [] Clinically Undetermined In responding to this query, please exercise your independent professional judgment. The fact that a question is asked does not imply that any particular answer is desired or expected. Thank you for your clarification on this documentation. If you have any questions please call:[ ] * Thank you, [ ]Ana Irwin chief clinical officer [facility]
--- NOTE | 2017-05-24 08:27 | RAD ---
HISTORY: Follow-up pneumonia. COMPARISON: Comparison made with prior study 09/12/2016. TECHNIQUE: Chest PA and lateral FINDINGS: LUNGS: There appears be some minor right basilar atelectasis or scarring. Mild blunting right CP angle could be due to small effusion versus chronic pleural thickening. . PLEURA: As above. No pneumothorax apparent. CARDIOVASCULAR: Normal. OSSEOUS STRUCTURES: Multilevel degenerative spondylosis of the thoracic spine VISUALIZED UPPER ABDOMEN: Normal. OTHER FINDINGS: None. IMPRESSION: Minor right basilar atelectasis or scarring. Questionable small right-sided effusion or chronic pleural thickening.
== END 2017-05-22 18:15 | disposition home or self-care (01) | DRG 871 ==
LOC: H.ER 16:58 → H.ERHOLD 19:17 → H.TEL 20:55
PROVIDERS: ADMIT Internal Medicine Pulmonary Disease; ATTEND Internal Medicine Pulmonary Disease
DX: A41.9 Sepsis, unspecified organism (principal); J18.9 Pneumonia, unspecified organism; E11.65 Type 2 diabetes mellitus with hyperglycemia; J44.0 Chronic obstructive pulmonary disease with (acute) lower respiratory infection; I48.0 Paroxysmal atrial fibrillation; J45.901 Unspecified asthma with (acute) exacerbation; E05.90 Thyrotoxicosis, unspecified without thyrotoxic crisis or storm; E07.81 Sick-euthyroid syndrome; E78.00 Pure hypercholesterolemia, unspecified; E78.5 Hyperlipidemia, unspecified; E87.6 Hypokalemia; I10 Essential (primary) hypertension; M17.0 Bilateral primary osteoarthritis of knee; R09.02 Hypoxemia